=== PATIENT | female | born 1980 | race Caucasian/White ===

== ENCOUNTER → 2017-11-08 13:29 | Outpatient (REF) | payer MEDICAID, SELFPAY ==
[2017-11-08 21:31] LABS: Amphetamine/Metha Screen,Urine Negative ng/mL (<1000); Barbiturates Screen,Urine Negative ng/mL (<200); Benzodiazepines Screen,Urine Negative ng/mL (200); Cannabinoid Screen,Urine Negative ng/mL (<50); Cocaine Screen,Urine Negative ng/g (<300); Methadone Screen,Urine Negative ng/mL (<300); Opiate Screen,Urine Negative ng/mL (<300); Phencyclidine Screen,Urine Negative ng/mL (<25)
== END ==
LOC: LAB 13:29
PROVIDERS: Visit Provider Nurse Practitioner Family
DX: Z79.899 Other long term (current) drug therapy (principal)
CPT/HCPCS: 80305

== ENCOUNTER 2017-12-11 07:37 | Inpatient (IN) | payer MEDICAID, SELFPAY ==
[2017-12-11] VITALS (9 sets, daily range): BP systolic 95–115; BP diastolic 48–69; PULSE 71–91; RESP 12–20; TEMP 36.6–36.9; O2SAT 94–99; BMI 23.0
--- NOTE | 2017-12-11 07:47 | XR_ITS ---
XR chest 2V Ordering Physician: Pilar George MD Patient Age: 37 years: Female HISTORY: ITS.REASON: Chest pain Chest pain short of breath TECHNIQUE: PA and lateral chest COMPARISON :PA and lateral chest 10/29/2015. FINDINGS No prominent findings. No pneumothorax. No pleural effusion . No definitive focal pneumonia or consolidation. . There is slight rotation on this chest film which accentuates markings at the left perihilar region. Mild prominence markings left perihilar region most likely reflect stable features with no convincing infiltrate or pneumonia. No significant change compared to prior studies when mild rotation, positioning and technique are considered.. No convincing perihilar infiltrate Chest wall and ribs and T-spine satisfactory. IMPRESSION No pneumothorax.. Nothing definitely acute. Upper normal markings at the left perihilar region.-Most likely left perihilar markings are accentuated by leftward rotation on this chest film and most likely stable since previous 2016 CXR..
[2017-12-11 08:06] LABS: Basophils % 0.1 % (0.1-2.0); Eosinophils # 0.2 K/mm3 (0.0-0.4); Eosinophils % 1.6 % (0.1-12.0); Hematocrit 45.5 % (37.0-47.0); Hemoglobin 16.4 g/dL (12.2-16.2); Lymphocytes # 1.2 K/mm3 (0.7-4.5); Lymphocytes % 9.8 K/mm3 (10-50); Mean Corpuscular HGB Conc 36.1 g/dL (31.8-35.4); Mean Corpuscular Volume 91.5 fl (81-99); Mean Platelet Volume 6.9 fl (7.4-10.4); Monocytes # 0.4 K/mm3 (0.1-1.0); Monocytes % 3.3 % (1.7-9.3); Neutrophils # 10.7 K/mm3 (1.8-7.8); Neutrophils % 85.4 % (37.0-80.0); Platelet Count 265 K/mm3 (142-424); Red Blood Count 4.97 M/mm3 (4.20-5.40); Red Cell Distribution Width 12.5 % (11.5-17.5); White Blood Count 12.5 K/mm3 (4.8-10.8)
[2017-12-11 08:07] LABS: MANUAL DIFFERENTIAL MANUAL DIFFERENTIAL (MANUAL DIFF)
[2017-12-11 08:21] LABS: Chloride 103 mmol/L (98-107); Creatine Kinase 80 U/L (26-192); Potassium 3.5 mmoL/L (3.5-5.1); Sodium 137 mmol/L (136-145)
[2017-12-11 08:22] LABS: Alanine Aminotransferase 53 U/L (12-78); Albumin Level 3.6 gm/dL (3.4-5.0); Albumin/Globulin Ratio 0.9 (1.1-1.8); Alkaline Phosphatase 91 U/L (46-116); Aspartate Amino Transferase 47 U/L (15-37); Bilirubin,Total 0.5 mg/dL (0.2-1.0); Blood Urea Nitrogen 6 mg/dL (7-18); Calcium 8.3 mg/dL (8.5-10.1); Carbon Dioxide 27 mmol/L (21.0-32.0); Creatinine Clearance Estimated 105 mL/min (0-300); Creatinine,Serum 0.65 mg/dL (0.55-1.02); Estimated Glomerular Filt Rate 103 ml/min (>60); GFR (African American) 125 ML/MIN (>60); Globulin 3.9 gm/dl (1.3-3.2); Total Protein,Serum 7.5 gm/dL (6.4-8.2)
[2017-12-11 08:25] LABS: Lymphocytes % 14 % (10-50); Monocytes % 1 % (2-9); Neutrophils % 83 % (42-76); Platelet Estimate Normal; RBC Morphology Normal; Total Cells Counted 100
[2017-12-11 08:28] LABS: Glucose 111 mg/dL (74-106)
--- NOTE | 2017-12-11 08:30 | HMH.EDSOB ---
ED Disposition Clinical Impression: Acute coronary syndrome, Pneumonia, Tobacco abuse disorder, Asthma, Hypertension Disposition: Still a Patient Condition on Discharge: Fair Referrals: Martin Meeks APRN [Primary Care Provider] - - Critical Care Critical Care Time: No Attestation: On 12/11/17, the high probability of a clinically significant, sudden or life threatening deterioration of the following system(s) required my full and direct attention, intervention and personal management. The time I documented below is in addition to time spent performing reported procedures but includes the following listed in this critical care notation. Medical Decision Making Vital Signs: 12/11/17 07:38 Temperature 98.4 F Temperature Source Oral Pulse Rate [Right Radial] 91 H Respiratory Rate 20 Blood Pressure [Left Arm] 95/48 Blood Pressure Mean [Left Arm] 63 Blood Pressure Source [Left Arm] Automatic Cuff Blood Pressure Position [Left Arm] Right Lateral 02 Sat by Pulse Oximetry 94 L Oxygen Delivery Method Nasal Cannula - Lab Data Lab results reviewed: Yes: I reviewed the patient's lab results. Lab Results 12/11/17 07:55: WBC 12.5 H, RBC 4.97, Hgb 16.4 H, Hct 45.5, MCV 91.5, MCH 33.0 H, MCHC 36.1 H, RDW 12.5, Plt Count 265, MPV 6.9 L, Neut % (Auto) 85.4 H, Lymph % (Auto) 9.8 L, [place] % (Auto) 3.3, Eos % (Auto) 1.6, Baso % (Auto) 0.1, Neut # (Auto) 10.7 H, Lymph # (Auto) 1.2, [place] # (Auto) 0.4, Eos # (Auto) 0.2, Baso # (Auto) 0.0, Total Counted 100, Neutrophils % (Manual) 83 H, Band Neutrophils % 1.0, Lymphocytes % (Manual) 14, Atypical Lymphs % 1.0, Monocytes % (Manual) 1 L, Platelet Estimate Normal, RBC Morphology Normal 12/11/17 07:55: Sodium 137, Potassium 3.5, Chloride 103, Carbon Dioxide 27, Anion Gap 7.0, BUN 6 L, Creatinine 0.65, Estimated Creat Clear 105, Estimated GFR 103, Est GFR ( Amer) 125, Glucose 111 H, Calcium 8.3 L, Total Bilirubin 0.5, AST 47 H, ALT 53, Alkaline Phosphatase 91, Total Creatine Kinase 80, CK-MB (CK-2) 2.7, CK-MB (CK-2) Rel Index 3.4, Troponin I 0.74 H, Total Protein 7.5, Albumin 3.6, Globulin 3.9 H, Albumin/Globulin Ratio 0.9 L 12/11/17 07:55: D-Dimer < 100 12/11/17 07:55: B-Natriuretic Peptide 102 H 12/11/17 08:40: Specimen Source Right brachial, O2 % 28, ABG pH 7.43, ABG pCO2 34.7 L, ABG pO2 46.4 L, ABG HCO3 22.5, ABG Total CO2 23.5, ABG O2 Saturation 88 L, ABG Base Excess -1.9, Trip Test Not applicable Result diagrams: 12/11/17 07:55 12/11/17 07:55 Orders (Tests/Meds): ED MEDICATIONS Generic Name Dose Route Start Last Admin Trade Name Freq PRN Reason Stop Dose Admin Sodium Chloride 1,000 mls @ 999 mls/hr 12/11/17 08:45 Sod Chlor 0.9% 1000ml Bag IV 12/11/17 09:45 .Q1H1M DEVON Ceftriaxone Sodium 1 gm/ 50 mls @ 100 mls/hr 12/11/17 08:45 Sodium Chloride IV 12/25/17 08:44 Q24H DEVON Protocol Discontinued Medications Generic Name Dose Route Start Last Admin Trade Name Freq PRN Reason Stop Dose Admin Albuterol Sulfate 2.5 mg 12/11/17 08:41 Albuterol 0.083% 2.5mg/3ml Neb IH 12/11/17 08:42 ONCE ONE Aspirin 325 mg 12/11/17 07:46 12/11/17 07:51 Aspirin 325mg Tablet PO 12/11/17 07:47 325 mg ONCE ONE Administration Enoxaparin Sodium 60 mg 12/11/17 08:41 Lovenox 60mg/0.6ml Syringe SQ 12/11/17 08:42 ONCE ONE Famotidine 20 mg 12/11/17 08:41 Pepcid 20mg/2ml Vial IV 12/11/17 08:42 ONCE ONE ORDERS Category Date Time Status XR chest 2V Stat Exams 12/11/17 07:47 Taken Lactic Acid Stat Lab 12/11/17 09:00 Received Blood Culture Stat Micro 12/11/17 08:41 Ordered Sputum Culture & Gram Stain Stat Micro 12/11/17 08:41 Ordered ABG [Arterial Blood Gas] Stat RT 12/11/17 08:07 Ordered 12-lead EKG Request [ECG Request by /Susanne] Stat Y 12/11/17 07:49 Ordered - Radiology Data #1 Image(s): Chest Image Reviewed: Yes I reviewed the patient's radiology image Preliminary Findings:
[2017-12-11 08:34] LABS: CKMB Relative Index 3.4 U/L (0-4.0); Creatine Kinase MB 2.7 mg/ml (0.0-3.6)
--- NOTE | 2017-12-11 08:34 | ED_ITS ---
ED Disposition Clinical Impression: Acute coronary syndrome, Pneumonia, Tobacco abuse disorder, Asthma, Hypertension Disposition: Still a Patient Condition on Discharge: Fair Referrals: Martin Meeks APRN [Primary Care Provider] - - Critical Care Critical Care Time: No Attestation: On 12/11/17, the high probability of a clinically significant, sudden or life threatening deterioration of the following system(s) required my full and direct attention, intervention and personal management. The time I documented below is in addition to time spent performing reported procedures but includes the following listed in this critical care notation. Medical Decision Making Vital Signs: 12/11/17 07:38 Temperature 98.4 F Temperature Source Oral Pulse Rate [Right Radial] 91 H Respiratory Rate 20 Blood Pressure [Left Arm] 95/48 Blood Pressure Mean [Left Arm] 63 Blood Pressure Source [Left Arm] Automatic Cuff Blood Pressure Position [Left Arm] Right Lateral 02 Sat by Pulse Oximetry 94 L Oxygen Delivery Method Nasal Cannula - Lab Data Lab results reviewed: Yes: I reviewed the patient's lab results. Lab Results 12/11/17 07:55: WBC 12.5 H, RBC 4.97, Hgb 16.4 H, Hct 45.5, MCV 91.5, MCH 33.0 H , MCHC 36.1 H, RDW 12.5, Plt Count 265, MPV 6.9 L, Neut % (Auto) 85.4 H, Lymph % (Auto) 9.8 L, [place] % (Auto) 3.3, Eos % (Auto) 1.6, Baso % (Auto) 0.1, Neut # ( Auto) 10.7 H, Lymph # (Auto) 1.2, [place] # (Auto) 0.4, Eos # (Auto) 0.2, Baso # ( Auto) 0.0, Total Counted 100, Neutrophils % (Manual) 83 H, Band Neutrophils % 1.0, Lymphocytes % (Manual) 14, Atypical Lymphs % 1.0, Monocytes % (Manual) 1 L , Platelet Estimate Normal, RBC Morphology Normal 12/11/17 07:55: Sodium 137, Potassium 3.5, Chloride 103, Carbon Dioxide 27, Anion Gap 7.0, BUN 6 L, Creatinine 0.65, Estimated Creat Clear 105, Estimated GFR 103, Est GFR ( Amer) 125, Glucose 111 H, Calcium 8.3 L, Total Bilirubin 0.5, AST 47 H, ALT 53, Alkaline Phosphatase 91, Total Creatine Kinase 80, CK-MB (CK-2) 2.7, CK-MB (CK-2) Rel Index 3.4, Troponin I 0.74 H, Total Protein 7.5, Albumin 3.6, Globulin 3.9 H, Albumin/Globulin Ratio 0.9 L 12/11/17 07:55: D-Dimer < 100 12/11/17 07:55: B-Natriuretic Peptide 102 H 12/11/17 08:40: Specimen Source Right brachial, O2 % 28, ABG pH 7.43, ABG pCO2 34.7 L, ABG pO2 46.4 L, ABG HCO3 22.5, ABG Total CO2 23.5, ABG O2 Saturation 88 L, ABG Base Excess -1.9, Trip Test Not applicable Result diagrams: 12/11/17 07:55 12/11/17 07:55 Orders (Tests/Meds): ED MEDICATIONS Generic Name Dose Route Start Last Admin Trade Name Freq PRN Reason Stop Dose Admin Sodium Chloride 1,000 mls @ 999 mls/hr 12/11/17 08:45 Sod Chlor 0.9% 1000ml Bag IV 12/11/17 09:45 .Q1H1M DEVON Ceftriaxone Sodium 1 gm/ 50 mls @ 100 mls/hr 12/11/17 08:45 Sodium Chloride IV 12/25/17 08:44 Q24H DEVON Protocol Discontinued Medications Generic Name Dose Route Start Last Admin Trade Name Freq PRN Reason Stop Dose Admin Albuterol Sulfate 2.5 mg 12/11/17 08:41 Albuterol 0.083% 2.5mg/3ml Neb IH 12/11/17 08:42 ONCE ONE Aspirin 325 mg 12/11/17 07:46 12/11/17 07:51 Aspirin 325mg Tablet PO 12/11/17 07:47 325 mg ONCE ONE Administration Enoxaparin Sodium 60 mg 12/11/17 08:41 Lovenox 60mg/0.6ml Syringe SQ 12/11/17 08:42 ONCE ON
[2017-12-11 08:35] LABS: Troponin I 0.74 ng/ml (0.00-0.06)
[2017-12-11 08:37] LABS: D-Dimer < 100 (0-400)
[2017-12-11 08:47] LABS: ABG Base Excess -1.9 mmol/L (-2.4-2.3); ABG HCO3 22.5 mmhg (22.0-26.0); ABG Oxygen Saturation 88 % (90-100); ABG PCO2 34.7 mmhg (35.0-45.0); ABG PH 7.43 mmol/L (7.35-7.45); ABG TCO2 23.5 mmhg (23-27)
[2017-12-11 08:50] LABS: Oxygen 28 %; Source RIGHT BRACHIAL
[2017-12-11 08:51] LABS: ABG PO2 46.4 mmhg (80-100)
[2017-12-11 09:29] LABS: Lactic Acid 0.9 mmol/L (0.4-2.0)
--- NOTE | 2017-12-11 12:50 | P.CONPHA_ITS ---
[facility] Pharm[facility] VTE Monitoring - Patient Demographics Admission date: 12/11/17 Report Date: 12/11/17 Time: 12:50 Allergies/Adverse Reactions: Patient Allergies No Known Allergies Allergy (Verified 12/06/17 12:00) Height: 1.55 m Weight: 48.081 kg Patient Problems: Current Active Problems Acute coronary syndrome (Acute) Pneumonia (Acute) Tobacco abuse disorder (Acute) Asthma (Acute) Hypertension (Acute) - VTE Risk Labs: VTE Related Lab Results Hgb 16.4 g/dL (12.2-16.2) H 12/11/17 07:55 Hct 45.5 % (37.0-47.0) 12/11/17 07:55 Plt Count 265 K/mm3 (142-424) 12/11/17 07:55 BUN 6 mg/dL (7-18) L 12/11/17 07:55 Creatinine 0.65 mg/dL (0.55-1.02) 12/11/17 07:55 Estimated Creat Clear 105 mL/min (0-300) 12/11/17 07:55 Was VTE Risk Assessment Performed: Yes VTE Score: 1 VTE Risk Level: Low Risk - Prophylaxis VTE Prophylaxis Ordered?: Yes Types of VTE Prophylaxis: Pharmacological Pharmacologic Type: Enoxaparin
--- NOTE | 2017-12-11 23:12 | PC.NURSE ---
pt c/o shortness of breath O2 sats 94 on 2 L, pt placed on 2 L NC, upon reassessment pt states SOA has decreased.
[2017-12-12] VITALS (24 sets, daily range): BP systolic 97–151; BP diastolic 45–99; PULSE 70–100; RESP 14–18; TEMP 36.6–37.4; O2SAT 93–100
--- NOTE | 2017-12-12 | IR_ITS ---
CARDIAC CATHETERIZATION DATE OF CATHETERIZATION:12/12/2017 10:20 AM PROCEDURES: 1. Left heart catheterization 2. Left ventriculogram 3. Selective coronary angiogram INDICATION FOR TEST: 1. Acute non-ST elevation myocardial infarction troponin 0.74 2. Risk factors for coronary disease 3. Highly abnormal EKG Informed consent was obtained prior to the procedure. COMPLICATIONS: None ESTIMATED BLOOD LOSS: Less than 10 ml. TECHNIQUE: One percent lidocaine used to anesthetize the right anterior aspect of the wrist. The right radial artery was accessed via the Seldinger technique. A 6 Icelandic sheath was placed in the right radial artery. 2.5 mg of verapamil, 800 mcg of nitroglycerin and 5000 U Heparin were given through the arterial sheath. The trap catheter was also used to perform left heart catheterization left ventriculogram and selective coronary angiogram. At the end of the procedure the patient was transferred to the post-op holding area in stable condition for arterial sheath removal. ANGIOGRAPHIC RESULTS: 1. The left main artery normal 2. The left anterior descending artery has very proximal eccentric 10% stenosis 3. The circumflex artery is codominant and normal 4. The right coronary artery is codominant normal 5. The GONZÁLES ventriculogram reveals normal 65% 6. The left ventricular end-diastolic pressure 10 mmHg IMPRESSION: 1. Mild nonflow limiting coronary artery disease 2. Normal ejection fraction 3. Normal left ventricular end-diastolic pressure PLAN: 1. Patient is having severe anxiety. Recommend anxiolytics 2. Beta blockers and or diltiazem 3. Aggressive risk factor modification 4. Tobacco cessation 5. LDL less than 55 6. I would recommend patient be evaluated for pulmonary embolism. Her EKG does suggest right ventricular strain. This could also explain the elevated troponin
--- NOTE | 2017-12-12 03:42 | PC.NURSE ---
no changes noted from previous assessment, at beginning of shift pt appeared very anxious and was crying, PRN medication given for anxiety and pt has slept since, pt c/o chest discomfort and SOA once this shift, PRN medication given per DEC and 2L NC placed, pt currently on room air and O2 sats remain wnl, scattered wheezing noted to auscultation, bowel sounds are active, no acute distress noted at this time, call light in reach, will continue to monitor.
--- NOTE | 2017-12-12 06:17 | PC.NURSE ---
report given to Emely Macias RN
[2017-12-12 07:18] LABS: Eosinophils % 0.6 % (0.1-12.0); Hematocrit 41.7 % (37.0-47.0); Mean Corpuscular HGB Conc 34.2 g/dL (31.8-35.4); Mean Corpuscular Hemoglobin 31.2 pg (27.0-31.2); Mean Corpuscular Volume 91.4 fl (81-99); Mean Platelet Volume 7.3 fl (7.4-10.4); Monocytes # 0.3 K/mm3 (0.1-1.0); Monocytes % 4.6 % (1.7-9.3); Neutrophils # 3.4 K/mm3 (1.8-7.8); Neutrophils % 59.8 % (37.0-80.0); Platelet Count 210 K/mm3 (142-424); Red Blood Count 4.56 M/mm3 (4.20-5.40); Red Cell Distribution Width 12.5 % (11.5-17.5); White Blood Count 5.7 K/mm3 (4.8-10.8)
[2017-12-12 07:30] LABS: Anion Gap 12.5 mEq/L (5-15); Blood Urea Nitrogen 6 mg/dL (7-18); Carbon Dioxide 24 mmol/L (21.0-32.0); Chloride 108 mmol/L (98-107); Cholesterol 181 mg/dL (140-200); Creatinine Clearance Estimated 100 mL/min (0-300); Creatinine,Serum 0.59 mg/dL (0.55-1.02); Estimated Glomerular Filt Rate 115 ml/min (>60); GFR (African American) 140 ML/MIN (>60); Glucose 88 mg/dL (74-106); HDL Cholesterol 30 mg/dL (29-89); LDL Cholesterol 116 mg/dL (0-130); Potassium 3.5 mmoL/L (3.5-5.1); Sodium 141 mmol/L (136-145); Triglycerides 175 mg/dL (30-200); VLDL Cholesterol 35 mg/dL (0-40)
[2017-12-12 07:55] LABS: Hemoglobin 14.2 g/dL (12.2-16.2)
--- NOTE | 2017-12-12 07:57 | HMH.CNCARD ---
History of Present Illness Consult date: 12/12/17 Requesting physician: Frank Donovan Consult reason: chest pain Chief complaint: chest pain, SOA Additional Medical History:: 1. Hypertension, treated for about 3 years 2. Tobacco use, 1-1.5 packs per day, several years 3. Anxiety 4. Tremor 5. Strong family history of coronary artery disease in both her brother and father in their 30s. 6. History of seizure activity postanesthesia, 09/2017, after deviated septum surgery. History of present illness: 37-year-old white female with history of tobacco use, hypertension and strong family history of coronary disease was awakened about 4:00 yesterday morning with severe shortness of breath, right-sided chest pain with radiation into the right shoulder and jaw. She did have some accompanying chest discomfort with deep breathing or coughing. Patient called EMS for evaluation and was subsequently transported to the hospital for further treatment. Symptoms did seem to improve with oxygen therapy in route. She was diagnosed with pneumonia and started on antibiotics. Lab work returned with an elevated troponin at 0.74. EKG showed sinus rhythm without acute ST segment changes. Patient denies any recurrent chest pain since admission and cardiology consulted for evaluation. The patient relates that her brother from a heart attack in his early 30s. Her father had heart attack in his 30s as well. [facility] History Medical History: Reports:: Anxiety, Depression, Hypertension Denies:: Diabetes Mellitus Type 1, Diabetes Mellitus Type 2 Laterality Cases: Bilateral: Other Other Surgeries: Yes: , Hernia Repair, Hysterectomy-Total, Tubal Ligation Amputation: No Fractures: Yes - *Social History Educational Level: Completed High School Smoking Status: Current every day smoker Tobacco Type: cigarettes # Packs/Day (cigarettes): 1 Alcohol Intake: never Alcohol Intake Frequency:: holidays/special occasions only Substance Use Type: denies use Occupational Status: employed - Psychiatric History Expresses thoughts of harming self/others: None Suicide Plan Description: No Plan Pschychiatric History:: Reports:: Anxiety, Depression *Family Hx:: Hypertension, Cancer Meds Home Medications Medication Instructions Recorded Confirmed Type Amlodipine Besylate [Amlodipine 10 mg PO DAILY 12/11/17 12/11/17 History 10mg Tab] Buprenorphine HCl/Naloxone HCl 2.5 film SL DAILY 12/11/17 12/11/17 History [Suboxone 8 mg-2 mg Sl Film] Gabapentin [Neurontin 800mg Tab] 800 mg PO TID 12/11/17 12/11/17 History Nicotine [Nicotine Patch] 1 patch TRANSDERMA Q24H 12/11/17 12/11/17 History Propranolol HCl 10 mg PO TID 12/11/17 12/11/17 History Quetiapine Fumarate 50 mg PO TID 12/11/17 12/11/17 History Sertraline HCl [Zoloft] 100 mg PO DAILY 12/11/17 12/11/17 History hydrOXYzine pamoate [Vistaril] 25 mg PO HS 12/11/17 12/11/17 History Allergies Allergy/AdvReac Type Severity Reaction Status Date / Time No Known Allergies Allergy Verified 12/06/17 12:00 Review of Systems - *Cardiovascular Reports chest pain, Reports shortness of breath, Reports shortness of breath with activity - *Respiratory Reports chest congestion, Reports cough, Reports shortness of breath, Reports shortness of breath with activity - *Gastrointestinal Denies nausea, Denies vomiting - *Musculoskeletal Reports back pain, Denies joint pain Exam Vital signs and Labs for Last 24 Hours: Temp Pulse Resp BP Pulse Ox 98.2 F 75 14 128/86 96 12/12/17 04:07 12/12/17 04:07 12/12/17 04:07 12/12/17 04:07 12/12/17 04:07 Laboratory Results - last 24 hr 12/12/17 06:49: WBC 5.7 D, RBC 4.56, Hgb 14.2 D, Hct 41.7, MCV 91.4, MCH 31.2, MCHC 34.2, RDW 12.5, Plt Count 210, MPV 7.3 L, Neut % (Auto) 59.8, Lymph % (Auto) 35.0, Cotton % (Auto) 4.6, Eos % (Auto) 0.6, Baso % (Auto) 0.0 L, Neut # (Auto) 3.4, Lymph # (Auto) 2.0, Cotton # (Auto) 0.3, Eos # (Auto) 0.0, Baso # (
--- NOTE | 2017-12-12 08:01 | P.CONS_ITS ---
History of Present Illness Consult date: 12/12/17 Requesting physician: Frank Donovan Consult reason: chest pain Chief complaint: chest pain, SOA Additional Medical History:: 1. Hypertension, treated for about 3 years 2. Tobacco use, 1-1.5 packs per day, several years 3. Anxiety 4. Tremor 5. Strong family history of coronary artery disease in both her brother and father in their 30s. 6. History of seizure activity postanesthesia, 09/2017, after deviated septum surgery. History of present illness: 37-year-old white female with history of tobacco use, hypertension and strong family history of coronary disease was awakened about 4:00 yesterday morning with severe shortness of breath, right-sided chest pain with radiation into the right shoulder and jaw. She did have some accompanying chest discomfort with deep breathing or coughing. Patient called EMS for evaluation and was subsequently transported to the hospital for further treatment. Symptoms did seem to improve with oxygen therapy in route. She was diagnosed with pneumonia and started on antibiotics. Lab work returned with an elevated troponin at 0.74. EKG showed sinus rhythm without acute ST segment changes. Patient denies any recurrent chest pain since admission and cardiology consulted for evaluation. The patient relates that her brother from a heart attack in his early 30s. Her father had heart attack in his 30s as well. [facility] History Medical History: Reports:: Anxiety, Depression, Hypertension Denies:: Diabetes Mellitus Type 1, Diabetes Mellitus Type 2 Laterality Cases: Bilateral: Other Other Surgeries: Yes: , Hernia Repair, Hysterectomy-Total, Tubal Ligation Amputation: No Fractures: Yes - *Social History Educational Level: Completed High School Smoking Status: Current every day smoker Tobacco Type: cigarettes # Packs/Day (cigarettes): 1 Alcohol Intake: never Alcohol Intake Frequency:: holidays/special occasions only Substance Use Type: denies use Occupational Status: employed - Psychiatric History Expresses thoughts of harming self/others: None Suicide Plan Description: No Plan Pschychiatric History:: Reports:: Anxiety, Depression *Family Hx:: Hypertension, Cancer Meds Home Medications Medication Instructions Recorded Confirmed Type Amlodipine Besylate [Amlodipine 10 mg PO DAILY 12/11/17 12/11/17 History 10mg Tab] Buprenorphine HCl/Naloxone HCl 2.5 film SL DAILY 12/11/17 12/11/17 History [Suboxone 8 mg-2 mg Sl Film] Gabapentin [Neurontin 800mg Tab] 800 mg PO TID 12/11/17 12/11/17 History Nicotine [Nicotine Patch] 1 patch TRANSDERMA Q24H 12/11/17 12/11/17 History Propranolol HCl 10 mg PO TID 12/11/17 12/11/17 History Quetiapine Fumarate 50 mg PO TID 12/11/17 12/11/17 History Sertraline HCl [Zoloft] 100 mg PO DAILY 12/11/17 12/11/17 History hydrOXYzine pamoate [Vistaril] 25 mg PO HS 12/11/17 12/11/17 History Allergies Allergy/AdvReac Type Severity Reaction Status Date / Time No Known Allergies Allergy Verified 12/06/17 12:00 Review of Systems - *Cardiovascular Reports chest pain, Reports shortness of breath, Reports shortness of breath with activity - *Respiratory Reports chest congestion, Reports cough, Reports shortness of breath, Reports shortness of breath with activity - *Gastrointestinal Denies nausea, Denies vomiting - *Musculoskeletal Reports back pain, Denies joint pain Exam Vital signs and Labs for Last 24 Hours:
--- NOTE | 2017-12-12 08:07 | CA_ITS ---
PROCEDURE: 2-D M-mode and color Doppler study INDICATIONS FOR THE TEST: Chest pain COPD Heart Murmur Tobacco SmokingX Palpitations Fatigue Syncope Edema HypertensionXDiabetes Mellitus Rheumatic Fever SOBXDOE Obesity Hyperlipidemia Family History HDX Additional History NSTEMI PATIENT INFORMATION HEIGHT: 61 WEIGHT:106 GENDER: Female B/P:128/86 2-D/M-MODE INTERPRETATION: 2-D MEASUREMENTS OBSERVED VALUES IN CMS Right Ventricular Dimension (RVDd) 1.8 Interventricular Septum (Thickness)(IVsd) .8 Left Ventricular Internal Dimensions(LVIDd) 3.6 Left Ventricular Posterior Wall (Thickness)(LVPWd) .9 Aortic Root 2.4 Aortic Cusp Separation 1.8 Left Atrial Dimensions (LAD) 1.8 2D 1. Left atrium is mildly enlarged, left ventricle is normal size, there is no concentric left ventricular hypertrophy, there is reduced left ventricular systolic function, visually estimated ejection fraction approximately 40%, there is marked hypokinesis involving the mid to distal septum, anteroapical and apical wall. 2. The right atrium and right ventricle are normal size and contractility. 3. The aortic valve is minimally thickened and fibrosed. 4. The mitral and tricuspid valve are structurally normal. 5. The pulmonic valve is poorly visualized. 6. No significant pericardial effusion noted. DOPPLER INTERROGATION: Doppler interrogation of the aortic, mitral and tricuspid valvular presence of mild mitral and tricuspid regurgitation, tricuspid and jet velocity insufficient for calculation of the right ventricular systolic pressure, diastolic parameters are inconclusive. CONCLUSION: 1. Normal left ventricular size, visually estimated ejection fraction 40% with segmental wall motion abnormality described above, diastolic parameters are inconclusive. 2. Mild mitral and tricuspid regurgitation 3. No significant pericardial effusion noted.
--- NOTE | 2017-12-12 10:10 | PC.NURSE ---
Patient off floor for heart cath. 1000
--- NOTE | 2017-12-12 13:24 | CT_ITS ---
CT angio chest Ordering Physician: Frank Donovan MD Patient Age: 37 years: Female HISTORY: ITS.REASON: SOAshort of breath. Heart catheter this morning TECHNIQUE: Helical CT scanning performed following 30 cc Isovue 370 and subsequent 40 m L of normal saline bolus. COMPARISON :Chest film 12/11/2017 yesterday FINDINGS No evidence of pulmonary blood Excellent Opacification of colon artery and vascular structures. With only mild motion artifact.. Normal. Pulmonary arteriesAnd branches. No pleural effusion Aorta appears normal in caliber. Great vessels normal. Rather diffuse patchy infiltrates throughout the lungs bilaterally. Most likely reflecting pneumonitis/pneumonia These patchy infiltrates are central and peribronchial, but not perihilar in distribution.. These patchy infiltrates are most evident throughout the upper lobes bilaterally. They have more of a groundglass opacity character throughout the right lower lobe and minimal infiltrate at the left lower lobe. Mediastinum but no mediastinal nor hilar adenopathy. Small calcified left hilar nodes. The heart appears normal in size no pericardial effusion. Upper abdomen. Spleen appears mildly enlarged. Liver. Generous size. No focal lesions IMPRESSION . 1.. No evidence of pulmonary embolism. Good quality study. 2. Diffuse subtle patchy Bilateral infiltrates, which have progressed slightly since yesterday chest film. Findings most compatible with Bronchopneumonia, w/ diffuse patchy infiltrates throughout most evident towards upper lobes bilaterally. . No pleural effusion. No area of dense focal consolidation 3. Splenomegaly incidentally noted at upper abdomen
--- NOTE | 2017-12-12 18:09 | HMH.HPDC ---
General - General Admission date: 12/11/17 Discharge date: 12/12/17 *Admission Date: 12/11/17 *Chief complaint: sob *History of present illness: this wf presented to the [facility] ed with chest pain and sob - she days ago she developed headache sore throat runny nose fever 103, on the following second and third day she developed productive cough of yellow sputum occasionally gagging until she vomited, she developed diarrhea also. She attempted to contact her primary care physician Dr. Donovan and she was informed to use [id number] medications and keep her follow-up appointment. She did and she felt better yesterday. This morning at 4 AM she was awakened by right shoulder pain and low back pain associated with shortness of air wheezing and cough. Per EMS report the nursing staff, her oxygen saturation is 93% on room air. She was given breathing treatments and oxygen with marked improvement of her symptoms. She can breathe better now. [facility] History I have reviewed the patient's past medical history: Yes Medical History: Reports:: Anxiety, Depression, Hypertension Denies:: Diabetes Mellitus Type 1, Diabetes Mellitus Type 2 Laterality Cases: Bilateral: Other Other Surgeries: Yes: , Hernia Repair, Hysterectomy-Total, Tubal Ligation Amputation: No Fractures: Yes - *Social History Educational Level: Completed High School Smoking Status: Current every day smoker Tobacco Type: cigarettes # Packs/Day (cigarettes): 1 Alcohol Intake: never Alcohol Intake Frequency:: holidays/special occasions only Substance Use Type: denies use Occupational Status: employed - Psychiatric History Expresses thoughts of harming self/others: None Suicide Plan Description: No Plan Pschychiatric History:: Reports:: Anxiety, Depression *Family Hx:: Hypertension, Cancer Review of Systems - Review of Systems Review of systems:: pertinent systems reviewed and negative unless documented below - Constitutional Reports malaise, Denies fever(s) - Eyes Denies change in vision - ENT Denies sore throat - *Cardiovascular Reports chest pain, Reports shortness of breath, Denies chest pain at rest - *Respiratory Reports cough, Denies coughing up blood - *Gastrointestinal Reports nausea, Denies abdominal pain - *Musculoskeletal Denies joint pain - Integumentary/Breasts Denies rash - *Neurologic Denies confusion, Denies dizziness - Psychiatric Reports anxiety Exam Vital signs and Labs for Last 24 Hours: Temp Pulse Resp BP Pulse Ox 99.2 F 70 16 123/92 97 12/12/17 13:45 12/12/17 16:00 12/12/17 13:45 12/12/17 13:45 12/12/17 13:45 Laboratory Results - last 24 hr 12/12/17 06:49: WBC 5.7 D, RBC 4.56, Hgb 14.2 D, Hct 41.7, MCV 91.4, MCH 31.2, MCHC 34.2, RDW 12.5, Plt Count 210, MPV 7.3 L, Neut % (Auto) 59.8, Lymph % (Auto) 35.0, [place] % (Auto) 4.6, Eos % (Auto) 0.6, Baso % (Auto) 0.0 L, Neut # (Auto) 3.4, Lymph # (Auto) 2.0, [place] # (Auto) 0.3, Eos # (Auto) 0.0, Baso # (Auto) 0.0 12/12/17 06:49: Sodium 141, Potassium 3.5, Chloride 108 H, Carbon Dioxide 24, Anion Gap 12.5, BUN 6 L, Creatinine 0.59, Estimated Creat Clear 100, Estimated GFR 115, Est GFR ( Amer) 140, Glucose 88 D, Triglycerides 175, Cholesterol 181, LDL Cholesterol 116, VLDL Cholesterol 35, HDL Cholesterol 30, Cholesterol/HDL Ratio 6.0 H I & O for Last 24 hours: Intake & Output 12/10/17 12/11/17 12/12/17 12/13/17 10:59 11:59 11:59 11:59 Intake Total 1671 / 1671 Balance 1671 / 1671 Weight 106 lb 0.007 oz Microbiology Reports for the Last 24 Hours: Microbiology 12/11/17 10:15 Blood Blood Culture - Preliminary NO GROWTH AFTER 24 HOURS - Constitutional no acute distress, thin - *Routine HEENT Exam Head: Present: normocephalic Eye: Present: EOMI, PERRL. Absent: conjunctival icterus ENT: Present: mucous membranes dry - *Routine Neck Exam Present: supple. Absent: JVD - *Routine Resp
--- NOTE | 2017-12-12 19:06 | PC.NURSE ---
PT HAS BEEN DISCHARGED. EDUCATED ON CATH SITE CARE. DRESSING WAS PLACED WITH 2X2 AND TELFA NO BLEEDING NOTED AND NO BRUISING.
== END 2017-12-12 19:20 | disposition home or self-care (01) | DRG 282 ==
LOC: ER 08:34 → 2ND 09:15
PROVIDERS: Internal Medicine; Admitting Provider Emergency Medicine; Emergency Provider Emergency Medicine; PCP Emergency Medicine; Visit Provider Emergency Medicine
DX: I21.4 Non-ST elevation (NSTEMI) myocardial infarction; I10 Essential (primary) hypertension; Z72.0 Tobacco use; F31.9 Bipolar disorder, unspecified; Z82.49 Family history of ischemic heart disease and other diseases of the circulatory system
CPT/HCPCS: 36415; 71046; 71275; 80048; 80053; 80061; 82550; 82553; 82803; 83605; 83880; 84484; 85007; 85025; 85378; 87040; 93005; 93306; 93458; 94640; 94760; 94761; 99152; 99284; C1725; C1769; J1644; J2270; Q9967

== ENCOUNTER → 2018-01-06 11:39 | Outpatient (CLI) | payer MEDICAID, SELFPAY | PROVIDERS: Visit Provider Nurse Practitioner Family | DX: Z79.899 Other long term (current) drug therapy (principal) ==

== ENCOUNTER → 2018-01-27 12:40 | Outpatient (CLI) | payer MEDICAID, SELFPAY ==
[2018-01-27 18:38] LABS: Eosinophils % 0.2 % (0.1-12.0); Hematocrit 45.6 % (37.0-47.0); Hemoglobin 16.1 g/dL (12.2-16.2); Lymphocytes # 1.8 K/mm3 (0.7-4.5); Lymphocytes % 31.6 K/mm3 (10-50); Mean Corpuscular HGB Conc 35.3 g/dL (31.8-35.4); Mean Corpuscular Volume 90.7 fl (81-99); Mean Platelet Volume 7.8 fl (7.4-10.4); Monocytes # 0.4 K/mm3 (0.1-1.0); Monocytes % 6.2 % (1.7-9.3); Neutrophils # 3.6 K/mm3 (1.8-7.8); Neutrophils % 61.9 % (37.0-80.0); Platelet Count 281 K/mm3 (142-424); Red Blood Count 5.03 M/mm3 (4.20-5.40); White Blood Count 5.8 K/mm3 (4.8-10.8)
[2018-01-27 18:53] LABS: Alanine Aminotransferase 42 U/L (12-78); Alkaline Phosphatase 101 U/L (46-116); Anion Gap 11.8 mEq/L (5-15); Aspartate Amino Transferase 36 U/L (15-37); Bilirubin,Total 0.5 mg/dL (0.2-1.0); Blood Urea Nitrogen 10 mg/dL (7-18); Calcium 9.3 mg/dL (8.5-10.1); Carbon Dioxide 30 mmol/L (21.0-32.0); Chloride 104 mmol/L (98-107); Chol/HDL Ratio 5.9 (1-3.5); Cholesterol 230 mg/dL (140-200); Creatinine,Serum 0.68 mg/dL (0.55-1.02); Estimated Glomerular Filt Rate 98 ml/min (>60); GFR (African American) 118 ML/MIN (>60); Globulin 3.9 gm/dl (1.3-3.2); HDL Cholesterol 39 mg/dL (29-89); LDL Cholesterol 161 mg/dL (0-130); Potassium 3.8 mmoL/L (3.5-5.1); Sodium 142 mmol/L (136-145); T4 (Thyroxine) 10.7 ug/dl (4.7-13.3); Thyroid Stimulating Hormone 1.36 uIU/ml (0.358-3.740); Total Protein,Serum 7.9 gm/dL (6.4-8.2); Triglycerides 148 mg/dL (30-200); Triiodothryronine (T3) Uptake 28 % (31-39); VLDL Cholesterol 30 mg/dL (0-40)
[2018-01-27 19:04] LABS: Glucose 98 mg/dL (74-106)
[2018-02-01 06:13] LABS: Vitamin B12 1153 pg/mL (232-1245)
[2018-02-01 06:14] LABS: Vitamin D 25 Hydroxy 34.1 ng/mL (30.0-100.0)
== END ==
PROVIDERS: Visit Provider Nurse Practitioner Family
DX: R53.83 Other fatigue (principal)
CPT/HCPCS: 80053; 80061; 82607; 82652; 84436; 84443; 84479; 85025

== ENCOUNTER 2018-01-28 06:57 | Observation (INO) ==
--- NOTE | 2018-01-28 07:22 | Emergency Department Note ---
ED Disposition Clinical Impression: COPD (chronic obstructive pulmonary disease) Qualifiers: COPD type: unspecified COPD Qualified Code(s): J44.9 - Chronic obstructive pulmonary disease, unspecified Asthma with exacerbation Qualifiers: Asthma severity: moderate Asthma persistence: persistent Qualified Code(s): J45.41 - Moderate persistent asthma with (acute) exacerbation Disposition: Admitted as Observation Condition on Discharge: Good Referrals: Frank Donovan MD [Primary Care Provider] - - Critical Care Critical Care Time: No Attestation: On 01/28/18, the high probability of a clinically significant, sudden or life threatening deterioration of the following system(s) required my full and direct attention, intervention and personal management. The time I documented below is in addition to time spent performing reported procedures but includes the following listed in this critical care notation. Medical Decision Making - Medical Records Medical records reviewed: Yes: I reviewed the patient's medical records. - Rian Inquiry Pt receiving controlled substance: No Vital Signs: 01/28/18 06:58 01/28/18 07:22 01/28/18 08:00 Temperature 99.8 F H Temperature Source Temporal Artery Scan Pulse Rate 85 Pulse Rate [Right Radial] 88 91 H Respiratory Rate 22 16 Blood Pressure [Right Arm] 116/74 111/78 Blood Pressure Mean [Right Arm] 88 89 Blood Pressure Source [Right Arm] Automatic Cuff Automatic Cuff Blood Pressure Position [Right Arm] Sitting Supine 02 Sat by Pulse Oximetry 95 95 96 Oxygen Delivery Method Room Air Room Air Nasal Cannula Oxygen Flow Rate (LPM) 2 - Lab Data Lab Results 01/28/18 07:05: WBC 14.1 H D, RBC 5.09, Hgb 15.9, Hct 45.0, MCV 88.5, MCH 31.2, MCHC 35.2, RDW 12.1, Plt Count 294, MPV 6.7 L, Neut % (Auto) 88.3 H, Lymph % ( Auto) 5.9 L, [place] % (Auto) 4.6, Eos % (Auto) 1.1, Baso % (Auto) 0.1, Neut # ( Auto) 12.4 H, Lymph # (Auto) 0.8, [place] # (Auto) 0.7, Eos # (Auto) 0.2, Baso # ( Auto) 0.0, Total Counted 100, Neutrophils % (Manual) 89 H, Lymphocytes % (Manual ) 5 L, Atypical Lymphs % 2.0, Monocytes % (Manual) 4, Platelet Estimate Normal, Stomatocytes 1+ 01/28/18 07:05: Sodium 140, Potassium 3.6, Chloride 104, Carbon Dioxide 29, Anion Gap 10.6, BUN 6 L D, Creatinine 0.61, Estimated Creat Clear 96, Estimated GFR 111, Est GFR ( Amer) 134, Glucose 115 H, Calcium 8.8, Total Bilirubin 0.7, AST 31, ALT 39, Alkaline Phosphatase 100, Troponin I < 0.02, Total Protein 7.9, Albumin 3.8, Globulin 4.1 H, Albumin/Globulin Ratio 0.9 L, Amylase 45, Lipase 66 L 01/28/18 07:05: Lactic Acid 1.7 01/28/18 07:05: D-Dimer 265 Result diagrams: 01/28/18 07:05 01/28/18 07:05 Orders (Tests/Meds): ED MEDICATIONS Discontinued Medications Generic Name Dose Route Start Last Admin Trade Name Arthurq PRN Reason Stop Dose Admin Albuterol/Ipratropium 3 ml 01/28/18 07:10 01/28/18 07:58 Duoneb 3ml Neb IH 01/28/18 07:11 3 ml ONCE ONE Administration Methylprednisolone Sodium Succinate 125 mg 01/28/18 07:10 01/28/18 07:28 Solu-Medrol 125mg/2ml Vial IV 01/28/18 07:11 125 mg ONCE ONE Administration ORDERS Category Date Time Status XR chest 2V Stat Exams 01/28/18 07:09 Taken Blood Culture Stat Micro 01/28/18 07:20 Received - Radiology Data #1 Image(s): Chest, Other (no gross infiltrate) - ECG Data Tracing #1 Normal Sinus Rhythm: Yes Arrhythmias present: other (no stemi) Resp/SOB HPI - General Chief Complaint: Shortness of Breath/Dyspnea Stated Complaint: short of breath Time Seen by Provider: 01/28/18 07:19 Mode of Arrival: Ambulatory Source of Information: Patient Limitations: No Limitations Description of Symptoms (Recalled from ER Triage Doc. by RN): short of breath / awoken by panik attack, recent pneumonia - History of Present Illness mild to mod shortness of breath and cough today, hx smoking, +feverish, pleuritic chest pain w/ cough, no lethargy, speech fluent MD Complaint: shortness of breath, cough Severity: mild Consistency/Duration: intermittent - Related Data Home Medications Medication Instructions Recorded Confirmed Buprenorphine HCl/Naloxone HCl 2.5 film SL DAILY 12/11/17 01/28/18 [Suboxone 8 mg-2 mg Sl Film] Nicotine [Nicotine Patch] 1 patch TRANSDERMA Q24H 12/11/17 01/28/18 propranolol 10 mg tablet 10 mg PO Q6H 01/27/18 01/28/18 Previous Rx's Medication Instructions Recorded amlodipine 10 mg tablet 10 mg PO DAILY #30 tab 01/06/18 hydroxyzine pamoate 25 mg capsule 25 mg PO QHS PRN #20 cap 01/06/18 sertraline 100 mg tablet 100 mg PO DAILY #30 tab 01/06/18 gabapentin 800 mg tablet 800 mg PO TID 30 Days #90 tab 01/27/18 Allergies Allergy/AdvReac Type Severity Reaction Status Date / Time No Known Allergies Allergy Verified 01/27/18 11:50 [facility] History I have reviewed the patient's past medical history: Yes Medical History: Reports:: Anxiety, Depression, Hypertension Denies:: Cancer, Diabetes Mellitus Type 1, Diabetes Mellitus Type 2, MRSA Comment: NERVE DAMAGE, BIPOLAR Laterality Cases: Bilateral: Other Other Surgeries: Yes: , Hernia Repair, Hysterectomy-Total, Tubal Ligation Amputation: No Fractures: Yes Comment: RHINOPLASTY - Social History Smoking Status: Current every day smoker Tobacco Type: cigarettes # Packs/Day (cigarettes): 1 Alcohol Intake: never Alcohol Intake Frequency:: holidays/special occasions only Substance Use Type: opiates Occupational Status: employed - Psychiatric History Expresses thoughts of harming self/others: None Suicide Plan Description: No Plan Pschychiatric History:: Reports:: Anxiety, Depression Family Hx:: Hypertension, Cancer ROS Obtained: Yes Systems reviewed as appropriate & no additional complaints - Constitutional Constitutional: Reports body ache - Respiratory Respiratory: Yes as per HPI Physical Exam - General General appearance: alert, in no apparent distress - Head Head exam: normocephalic - Eye Eye exam: Present: EOMI - ENT ENT exam: Present: mucous membranes moist - Neck Neck exam: Present: normal inspection - Chest Chest inspection: Present: normal inspection - Respiratory Respiratory exam: Present: wheezes. Absent: stridor - Cardiovascular Cardiovascular exam: Present: regular rate, normal rhythm - Abdominal Exam Abdominal exam: Present: soft. Absent: tenderness - Extremities Exam Extremities exam: Present: normal inspection, full ROM - Neurological Exam Neurological exam: Present: alert, oriented X3 - Psychiatric Psychiatric exam: Present: normal affect, normal mood - Skin Skin exam: Present: warm, dry
[2018-01-28 07:28] LABS: Basophils % 0.1 % (0.1-2.0); Eosinophils # 0.2 K/mm3 (0.0-0.4); Eosinophils % 1.1 % (0.1-12.0); Hemoglobin 15.9 g/dL (12.2-16.2); Lymphocytes # 0.8 K/mm3 (0.7-4.5); Lymphocytes % 5.9 K/mm3 (10-50); Mean Corpuscular HGB Conc 35.2 g/dL (31.8-35.4); Mean Corpuscular Hemoglobin 31.2 pg (27.0-31.2); Mean Corpuscular Volume 88.5 fl (81-99); Mean Platelet Volume 6.7 fl (7.4-10.4); Monocytes # 0.7 K/mm3 (0.1-1.0); Monocytes % 4.6 % (1.7-9.3); Neutrophils # 12.4 K/mm3 (1.8-7.8); Neutrophils % 88.3 % (37.0-80.0); Platelet Count 294 K/mm3 (142-424); Red Blood Count 5.09 M/mm3 (4.20-5.40); Red Cell Distribution Width 12.1 % (11.5-17.5); White Blood Count 14.1 K/mm3 (4.8-10.8)
[2018-01-28 07:44] LABS: Alanine Aminotransferase 39 U/L (12-78); Albumin Level 3.8 gm/dL (3.4-5.0); Albumin/Globulin Ratio 0.9 (1.1-1.8); Alkaline Phosphatase 100 U/L (46-116); Amylase 45 U/L (25-125); Anion Gap 10.6 mEq/L (5-15); Aspartate Amino Transferase 31 U/L (15-37); Bilirubin,Total 0.7 mg/dL (0.2-1.0); Blood Urea Nitrogen 6 mg/dL (7-18); Calcium 8.8 mg/dL (8.5-10.1); Carbon Dioxide 29 mmol/L (21.0-32.0); Chloride 104 mmol/L (98-107); Globulin 4.1 gm/dl (1.3-3.2); Glucose 115 mg/dL (74-106); Lipase 66 u/L (73-393); Potassium 3.6 mmoL/L (3.5-5.1); Sodium 140 mmol/L (136-145); Total Protein,Serum 7.9 gm/dL (6.4-8.2)
[2018-01-28 07:50] LABS: Lymphocytes % 5 % (10-50); Monocytes % 4 % (2-9); Neutrophils % 89 % (42-76); Stomatocytes 1+; Total Cells Counted 100
--- NOTE | 2018-01-28 08:33 | History & Physical Report ---
*Admission Date: 01/28/18 *Chief complaint: sob *History of present illness: this wf with known copd/asthma issues became sob this am and was brought by ems ild to mod shortness of breath and cough today, hx smoking, +feverish, pleuritic chest pain w/ cough, no lethargy, speech fluent- pt with 02 sat of 86 on room air - no hx of dvt H History I have reviewed the patient's past medical history: Yes Medical History: Reports:: Anxiety, Depression, Hypertension Denies:: Cancer, Diabetes Mellitus Type 1, Diabetes Mellitus Type 2, MRSA Laterality Cases: Bilateral: Other Other Surgeries: Yes: , Hernia Repair, Hysterectomy-Total, Tubal Ligation Amputation: No Fractures: Yes - *Social History Smoking Status: Current every day smoker Tobacco Type: cigarettes # Packs/Day (cigarettes): 1 Alcohol Intake: never Alcohol Intake Frequency:: holidays/special occasions only Substance Use Type: opiates Occupational Status: employed - Psychiatric History Expresses thoughts of harming self/others: None Suicide Plan Description: No Plan Pschychiatric History:: Reports:: Anxiety, Depression *Family Hx:: Hypertension, Cancer Review of Systems - Review of Systems Review of systems:: pertinent systems reviewed and negative unless documented below - Constitutional Denies headache(s) - Eyes Denies change in vision - ENT Denies sore throat - *Cardiovascular Reports chest pain at rest, Denies chest pain with activity - *Respiratory Reports cough, Reports shortness of breath - *Gastrointestinal Denies abdominal pain - *Genitourinary Denies blood in urine - *Musculoskeletal Denies joint pain, Denies joint swelling - Integumentary/Breasts Denies rash - *Neurologic Denies headache(s) - Psychiatric Reports anxiety Meds Home Medications Medication Instructions Recorded Confirmed Type Buprenorphine HCl/Naloxone HCl 2.5 film SL DAILY 12/11/17 01/28/18 History [Suboxone 8 mg-2 mg Sl Film] Nicotine [Nicotine Patch] 1 patch TRANSDERMA Q24H 12/11/17 01/28/18 History propranolol 10 mg tablet 10 mg PO Q6H 01/27/18 01/28/18 History Allergies Allergy/AdvReac Type Severity Reaction Status Date / Time No Known Allergies Allergy Verified 01/27/18 11:50 Exam Vital signs and Labs for Last 24 Hours: Temp Pulse Resp BP Pulse Ox 99.8 F H 85 16 111/78 96 01/28/18 06:58 01/28/18 08:00 01/28/18 07:22 01/28/18 07:22 01/28/18 08:00 Laboratory Results - last 24 hr 01/28/18 07:05: WBC 14.1 H D, RBC 5.09, Hgb 15.9, Hct 45.0, MCV 88.5, MCH 31.2, MCHC 35.2, RDW 12.1, Plt Count 294, MPV 6.7 L, Neut % (Auto) 88.3 H, Lymph % ( Auto) 5.9 L, [place] % (Auto) 4.6, Eos % (Auto) 1.1, Baso % (Auto) 0.1, Neut # ( Auto) 12.4 H, Lymph # (Auto) 0.8, [place] # (Auto) 0.7, Eos # (Auto) 0.2, Baso # ( Auto) 0.0, Total Counted 100, Neutrophils % (Manual) 89 H, Lymphocytes % (Manual ) 5 L, Atypical Lymphs % 2.0, Monocytes % (Manual) 4, Platelet Estimate Normal, Stomatocytes 1+ 01/28/18 07:05: Sodium 140, Potassium 3.6, Chloride 104, Carbon Dioxide 29, Anion Gap 10.6, BUN 6 L D, Creatinine 0.61, Estimated Creat Clear 96, Estimated GFR 111, Est GFR ( Amer) 134, Glucose 115 H, Calcium 8.8, Total Bilirubin 0.7, AST 31, ALT 39, Alkaline Phosphatase 100, Troponin I < 0.02, Total Protein 7.9, Albumin 3.8, Globulin 4.1 H, Albumin/Globulin Ratio 0.9 L, Amylase 45, Lipase 66 L 01/28/18 07:05: Lactic Acid 1.7 01/28/18 07:05: D-Dimer 265 I & O for Last 24 hours: Intake & Output 01/25/18 01/26/18 01/27/18 01/28/18 11:59 11:59 11:59 11:59 Weight 260 lb 2.327 oz - Constitutional no acute distress, thin - *Routine HEENT Exam Head: Present: normocephalic Eye: Present: EOMI, PERRL ENT: Present: mucous membranes dry - *Routine Neck Exam Present: supple - *Routine Respiratory Exam Present: decreased breath sounds, rhonchi - *Routine Cardiovascular Exam Present: RRR. Absent: murmur - *Routine Abdominal Exam Present: soft - *Routine Extremities Exam Present: full ROM. Absent: calf tenderness - *Routine Skin Exam Present: intact - *Routine Neurological Exam Present: alert, oriented X3, CN II-XII intact - Routine Psychiatric Exam Present: anxious H&P: Result - Labs Labs: Short CBC 01/28/18 Range/Units 07:05 WBC 14.1 H D (4.8-10.8) K/mm3 Hgb 15.9 (12.2-16.2) g/dL Hct 45.0 (37.0-47.0) % Plt Count 294 (142-424) K/mm3 BMP 01/28/18 07:05 Sodium 140 Potassium 3.6 Chloride 104 Carbon Dioxide 29 BUN 6 L D Creatinine 0.61 Glucose 115 H Calcium 8.8 Cardiac Enzymes 01/28/18 Range/Units 07:05 Troponin I < 0.02 (0.00-0.06) ng/ml Liver Function 01/28/18 Range/Units 07:05 Total Bilirubin 0.7 (0.2-1.0) mg/dL AST 31 (15-37) U/L ALT 39 (12-78) U/L Alkaline Phosphatase 100 (46-116) U/L Albumin 3.8 (3.4-5.0) gm/dL Assessment and Plan (1) Asthma with exacerbation Current visit: Yes Status: Acute Qualifiers: Asthma severity: moderate Asthma persistence: persistent Qualified Code(s ): J45.41 - Moderate persistent asthma with (acute) exacerbation Category: Medical Code(s): J45.901 - Unspecified asthma with (acute) exacerbation (2) COPD (chronic obstructive pulmonary disease) Current visit: Yes Status: Acute Qualifiers: COPD type: unspecified COPD Qualified Code(s): J44.9 - Chronic obstructive pulmonary disease, unspecified Category: Medical Code(s): J44.9 - Chronic obstructive pulmonary disease, unspecified (3) Anxiety Current visit: No Status: Acute Category: Medical Code(s): F41.9 - Anxiety disorder, unspecified (4) Tobacco use Current visit: Yes Status: Acute Category: Social Hx Code(s): Z72.0 - Tobacco use
--- NOTE | 2018-01-28 09:45 | Pharmacy Consult Notes ---
[facility] Pharmacy VTE Monitoring - Patient Demographics Admission date: 01/28/18 Report Date: 01/28/18 Time: 09:45 Allergies/Adverse Reactions: Patient Allergies No Known Allergies Allergy (Verified 01/27/18 11:50) Height: 1.55 m Weight: 52.758 kg Patient Problems: Current Active Problems COPD (chronic obstructive pulmonary disease) (Acute) Asthma with exacerbation (Acute) Tobacco use (Acute) - VTE Risk Labs: VTE Related Lab Results Hgb 15.9 g/dL (12.2-16.2) 01/28/18 07:05 Hct 45.0 % (37.0-47.0) 01/28/18 07:05 Plt Count 294 K/mm3 (142-424) 01/28/18 07:05 BUN 6 mg/dL (7-18) L D 01/28/18 07:05 Creatinine 0.61 mg/dL (0.55-1.02) 01/28/18 07:05 Estimated Creat Clear 96 mL/min (0-300) 01/28/18 07:05 - Prophylaxis VTE Prophylaxis Ordered?: Yes Types of VTE Prophylaxis: TEDS Knee High Location of Applied Device: Bilateral Lower Extremeties - VTE Diagnosis Confirmed Treatment or plan recommended: Continue Current Treatment
[2018-01-29 06:56] LABS: Eosinophils % 0.1 % (0.1-12.0); Hematocrit 42.5 % (37.0-47.0); Hemoglobin 14.6 g/dL (12.2-16.2); Lymphocytes # 1.1 K/mm3 (0.7-4.5); Lymphocytes % 8.6 K/mm3 (10-50); Mean Corpuscular HGB Conc 34.4 g/dL (31.8-35.4); Mean Platelet Volume 6.9 fl (7.4-10.4); Monocytes # 0.3 K/mm3 (0.1-1.0); Monocytes % 2.4 % (1.7-9.3); Neutrophils # 11.1 K/mm3 (1.8-7.8); Neutrophils % 88.9 % (37.0-80.0); Platelet Count 269 K/mm3 (142-424); Red Blood Count 4.73 M/mm3 (4.20-5.40); White Blood Count 12.4 K/mm3 (4.8-10.8)
[2018-01-29 07:07] LABS: Lymphocytes % 10 % (10-50); Neutrophils % 84 % (42-76); RBC Morphology Normal; Total Cells Counted 100
[2018-01-29 07:11] LABS: Albumin/Globulin Ratio 0.8 (1.1-1.8); Anion Gap 10.8 mEq/L (5-15); Bilirubin,Total 0.5 mg/dL (0.2-1.0); Calcium 8.6 mg/dL (8.5-10.1); Globulin 3.9 gm/dl (1.3-3.2); Potassium 3.8 mmoL/L (3.5-5.1); Total Protein,Serum 6.9 gm/dL (6.4-8.2)
--- NOTE | 2018-01-29 08:29 | Progress Note ---
Internal Medicine - PN: Subj *Date: 01/29/18 *Time: 08:26 Interval history: doing better this am - room o2 sat improved - no hemoptysis - discussed tob and need to use inhalers and do pft as op Exam Vital signs and Labs for Last 24 Hours: Temp Pulse Resp BP Pulse Ox 98.2 F 84 16 117/75 90 L 01/29/18 08:00 01/29/18 08:00 01/29/18 08:00 01/29/18 08:00 01/29/18 08:00 Laboratory Results - last 24 hr 01/29/18 06:26: WBC 12.4 H, RBC 4.73, Hgb 14.6, Hct 42.5, MCV 90.0, MCH 31.0, MCHC 34.4, RDW 12.0, Plt Count 269, MPV 6.9 L, Neut % (Auto) 88.9 H, Lymph % ( Auto) 8.6 L, [place] % (Auto) 2.4, Eos % (Auto) 0.1, Baso % (Auto) 0.0 L, Neut # ( Auto) 11.1 H, Lymph # (Auto) 1.1, [place] # (Auto) 0.3, Eos # (Auto) 0.0, Baso # ( Auto) 0.0, Total Counted 100, Neutrophils % (Manual) 84 H, Band Neutrophils % 6.0, Lymphocytes % (Manual) 10, Platelet Estimate Normal, RBC Morphology Normal 01/29/18 06:26: Sodium 141, Potassium 3.8, Chloride 106, Carbon Dioxide 28, Anion Gap 10.8, BUN 9 D, Creatinine 0.55, Estimated Creat Clear 118, Estimated GFR 125, Est GFR ( Amer) 151, Glucose 120 H, Calcium 8.6, Magnesium 1.8, Total Bilirubin 0.5, AST 19 D, ALT 28 D, Alkaline Phosphatase 80, Total Protein 6.9, Albumin 3.0 L D, Globulin 3.9 H, Albumin/Globulin Ratio 0.8 L I & O for Last 24 hours: Intake & Output 01/26/18 01/27/18 01/28/18 01/29/18 11:59 11:59 11:59 11:59 Intake Total 2006 Output Total 300 / 300 Balance 1707 / 1707 Weight 116 lb 5 oz Microbiology Reports for the Last 24 Hours: Microbiology 01/28/18 07:20 Blood Blood Culture - Preliminary NO GROWTH AFTER 24 HOURS 01/28/18 07:20 Blood Blood Culture - Preliminary NO GROWTH AFTER 24 HOURS - Constitutional no acute distress, thin - *Routine HEENT Exam Head: Present: normocephalic Eye: Present: EOMI, PERRL ENT: Present: mucous membranes dry - *Routine Neck Exam Present: supple - *Routine Respiratory Exam Present: rhonchi. Absent: respiratory distress - *Routine Cardiovascular Exam Present: RRR. Absent: murmur - *Routine Abdominal Exam Present: soft - *Routine Extremities Exam Absent: edema, calf tenderness - *Routine Skin Exam Present: intact - *Routine Neurological Exam Present: alert, oriented X3, CN II-XII intact - Routine Psychiatric Exam Comments: anxious Assessment and Plan (1) Asthma with exacerbation Current visit: Yes Status: Acute Qualifiers: Asthma severity: moderate Asthma persistence: persistent Qualified Code(s ): J45.41 - Moderate persistent asthma with (acute) exacerbation Category: Medical Code(s): J45.901 - Unspecified asthma with (acute) exacerbation (2) COPD (chronic obstructive pulmonary disease) Current visit: Yes Status: Acute Qualifiers: COPD type: unspecified COPD Qualified Code(s): J44.9 - Chronic obstructive pulmonary disease, unspecified Category: Medical Code(s): J44.9 - Chronic obstructive pulmonary disease, unspecified (3) Anxiety Current visit: No Status: Acute Category: Medical Code(s): F41.9 - Anxiety disorder, unspecified (4) Tobacco use Current visit: Yes Status: Acute Category: Social Hx Code(s): Z72.0 - Tobacco use
--- NOTE | 2018-01-29 19:46 | Discharge Summary ---
General - General Admission date:: 01/28/18 Discharge date: 01/29/18 HPI HPI: this wf with known copd/asthma issues became sob this am and was brought by ems ild to mod shortness of breath and cough today, hx smoking, +feverish, pleuritic chest pain w/ cough, no lethargy, speech fluent- pt with 02 sat of 86 on room air - no hx of dvt or pe Hospital Course Hospital Course: pt did well with ivf and steroids and resp treatment and abx - she was able to maintain o2 sat w/o supp o2 - she felt less sob and exam was improved Objective Vital signs: Temp Pulse Resp BP Pulse Ox 98.0 F 80 16 131/85 91 L 01/29/18 15:22 01/29/18 18:59 01/29/18 15:22 01/29/18 15:22 01/29/18 15:22 no acute distress, thin - *Routine HEENT Exam Head: Present: normocephalic Eye: Present: EOMI, PERRL ENT: Present: mucous membranes moist - *Routine Neck Exam Present: supple. Absent: JVD - *Routine Respiratory Exam Present: CTA bilaterally. Absent: respiratory distress - *Routine Cardiovascular Exam Present: RRR, murmur. Absent: gallop, rubs - *Routine Abdominal Exam Present: soft - *Routine Extremities Exam Absent: cyanosis, clubbing, edema, calf tenderness - *Routine Skin Exam Present: intact - *Routine Neurological Exam Present: alert, oriented X3, CN II-XII intact - Routine Psychiatric Exam Present: anxious. Absent: suicidal ideation Results Labs on day of discharge: Labs from last 24 hours 01/29/18 01/29/18 06:26 06:26 WBC 12.4 H RBC 4.73 Hgb 14.6 Hct 42.5 MCV 90.0 MCH 31.0 MCHC 34.4 RDW 12.0 Plt Count 269 MPV 6.9 L Neut % (Auto) 88.9 H Lymph % (Auto) 8.6 L [place] % (Auto) 2.4 Eos % (Auto) 0.1 Baso % (Auto) 0.0 L Neut # (Auto) 11.1 H Lymph # (Auto) 1.1 [place] # (Auto) 0.3 Eos # (Auto) 0.0 Baso # (Auto) 0.0 Total Counted 100 Neutrophils % (Manual) 84 H Band Neutrophils % 6.0 Lymphocytes % (Manual) 10 Platelet Estimate Normal RBC Morphology Normal Sodium 141 Potassium 3.8 Chloride 106 Carbon Dioxide 28 Anion Gap 10.8 BUN 9 D Creatinine 0.55 Estimated Creat Clear 118 Estimated GFR 125 Est GFR ( Amer) 151 Glucose 120 H Calcium 8.6 Magnesium 1.8 Total Bilirubin 0.5 AST 19 D ALT 28 D Alkaline Phosphatase 80 Total Protein 6.9 Albumin 3.0 L D Globulin 3.9 H Albumin/Globulin Ratio 0.8 L Preliminary micro results at discharge 01/28/18 07:20 Blood Culture - Preliminary Blood NO GROWTH AFTER 24 HOURS 01/28/18 07:20 Blood Culture - Preliminary Blood NO GROWTH AFTER 24 HOURS DS: Diagnosis - Discharge Diagnosis (1) Asthma with exacerbation Status: Acute (2) COPD (chronic obstructive pulmonary disease) Status: Acute (3) Anxiety Status: Acute (4) Tobacco use Status: Acute Discharge Plan - Patient Discharge Instructions ACTIVITY: Continue current activity DIET: continue same diet Patient Instructions: Asthma -- Adult - Follow up Plan Disposition: Home, Self-Senior Care Medications: Home Medications Medication Instructions Recorded Confirmed Type Buprenorphine HCl/Naloxone HCl 2.5 film SL DAILY 12/11/17 01/28/18 History [Suboxone 8 mg-2 mg Sl Film] propranolol 10 mg tablet 10 mg PO TID 01/27/18 01/29/18 History Nicotine [Nicotine Patch 21 mg TD DAILY 01/29/18 01/29/18 History 21mg/24hrs] Prescriptions/Medication Reconciliation: New Nicotine [Nicoderm 21mg/24hr patch] 21 mg TD Q24H patch.td24 Azithromycin [Zithromax 250mg tab] 250 mg PO DIRECTED #6 tab Benzonatate [Tessalon [place] 100mg Cap] 100 mg PO TID #30 cap predniSONE [Prednisone 20mg Tab] 20 mg PO DAILY #10 tab ALPRAZolam [Xanax 0.25mg tab] 0.25 mg PO TID #15 tablet Continue amlodipine 10 mg tablet 10 mg PO DAILY #30 tab sertraline 100 mg tablet 100 mg PO DAILY #30 tab hydroxyzine pamoate 25 mg capsule 25 mg PO QHS PRN #20 cap PRN Reason: anxiety propranolol 10 mg tablet 10 mg PO TID gabapentin 800 mg tablet 800 mg PO TID 30 Days #90 tab Buprenorphine HCl/Naloxone HCl [Suboxone 8 mg-2 mg Sl Film] 2.5 film SL DAILY Nicotine [Nicotine Patch 21mg/24hrs] 21 mg TD DAILY
== END 2018-01-29 20:30 | disposition home or self-care (01) ==
LOC: ER 06:57 → 2ND 08:27 → INTOOBSV 09:29 → 2ND 09:30
PROVIDERS: ADMIT Emergency Medicine; ATTEND Emergency Medicine

== ENCOUNTER → 2018-02-23 11:42 | Outpatient (REF) | payer MEDICAID, SELFPAY ==
[2018-02-23 19:50] LABS: Amphetamine/Metha Screen,Urine Negative ng/mL (<1000); Barbiturates Screen,Urine Negative ng/mL (<200); Benzodiazepines Screen,Urine Negative ng/mL (200); Cannabinoid Screen,Urine Negative ng/mL (<50); Cocaine Screen,Urine Negative ng/g (<300); Methadone Screen,Urine Negative ng/mL (<300); Opiate Screen,Urine Negative ng/mL (<300); Phencyclidine Screen,Urine Negative ng/mL (<25)
== END ==
LOC: LAB 11:42
PROVIDERS: Visit Provider Nurse Practitioner Family
DX: Z79.899 Other long term (current) drug therapy (principal)
CPT/HCPCS: 80305

== ENCOUNTER → 2018-03-01 13:50 | Outpatient (REF) | payer MEDICAID, SELFPAY ==
[2018-03-01 14:55] LABS: Amphetamine/Metha Screen,Urine Negative ng/mL (<1000); Barbiturates Screen,Urine Negative ng/mL (<200); Benzodiazepines Screen,Urine Positive ng/mL (200); Cannabinoid Screen,Urine Negative ng/mL (<50); Cocaine Screen,Urine Negative ng/g (<300); Methadone Screen,Urine Negative ng/mL (<300); Opiate Screen,Urine Negative ng/mL (<300); Phencyclidine Screen,Urine Negative ng/mL (<25)
== END ==
LOC: LAB 13:50
PROVIDERS: Visit Provider Nurse Practitioner Family
DX: G62.9 Polyneuropathy, unspecified (principal); Z79.899 Other long term (current) drug therapy
CPT/HCPCS: 80305

== ENCOUNTER → 2018-07-10 15:22 | Outpatient (CLI) | payer MEDICAID, SELFPAY ==
[2018-07-10 19:01] LABS: Free T4 (Free Thyroxine) 0.99 ng/dl (0.76-1.46); Free Thyroxine Index 2.8 ug/dL (5.93-13.13); T4 (Thyroxine) 10.2 ug/dl (4.7-13.3); Thyroid Stimulating Hormone 1.82 uIU/ml (0.358-3.740); Triiodothryronine (T3) Uptake 27 % (31-39)
== END ==
PROVIDERS: PCP Internal Medicine Adolescent Medicine; Visit Provider Internal Medicine Adolescent Medicine
DX: R25.1 Tremor, unspecified (principal)
CPT/HCPCS: 36415; 84436; 84439; 84443; 84479

== ENCOUNTER → 2018-07-25 10:03 | Outpatient (CLI) | payer MEDICAID, SELFPAY ==
[2018-07-26 15:58] LABS: Estradiol 348.5 pg/mL (.); FSH 9.2 mIU/mL (.); LH 11.1 mIU/mL (.)
== END ==
PROVIDERS: PCP Internal Medicine Adolescent Medicine; Visit Provider Nurse Practitioner Obstetrics & Gynecology
DX: N95.1 Menopausal and female climacteric states (principal)
CPT/HCPCS: 36415; 82670; 83001; 83002

== ENCOUNTER → 2019-02-06 16:39 | Outpatient (CLI) | payer MEDICAID, SELFPAY ==
[2019-02-06 19:09] LABS: Free Thyroxine Index 2.9 ug/dL (5.93-13.13); T4 (Thyroxine) 11.6 ug/dl (4.7-13.3); Thyroid Stimulating Hormone 1.35 uIU/ml (0.358-3.740); Triiodothryronine (T3) Uptake 25 % (31-39)
== END ==
PROVIDERS: Visit Provider Internal Medicine Adolescent Medicine
DX: E03.9 Hypothyroidism, unspecified (principal)
CPT/HCPCS: 36415; 84436; 84443; 84479

== ENCOUNTER → 2020-04-08 09:35 | Outpatient (CLI) | payer OTHER, SELFPAY ==
--- NOTE | 2020-04-08 09:58 | XR_ITS ---
PROCEDURE: XR CHEST 2V CLINICAL HISTORY: COUGH Cough, smoker COMPARISON: CXR CHEST(2 VIEWS-NOT PORTABLE) from 08/29/2016 CXR2V XR chest 2V from 12/11/[address] angio chest from 12/12/2017 CXR2V XR chest 2V from 01/28/2018 FINDINGS: The cardiomediastinal silhouette and pulmonary vascularity are within normal limits. The lungs are clear without infiltrates, suspicious nodules, or pleural effusions. Calcified granuloma is present in the left lower lobe. No acute bony findings IMPRESSION: No acute findings. Dictated by: Trpi Will MD 04/08/2020 14:21 Electronically signed by Trip Will MD in [place] 04/08/2020 14:21
[2020-04-08 10:20] LABS: Basophils % 0.2 % (0.1-2.0); Eosinophils % 0.2 % (0.1-12.0); Hematocrit 46.6 % (37.0-47.0); Hemoglobin 16.2 g/dL (12.2-16.2); Lymphocytes # 1.7 K/mm3 (0.7-4.5); Lymphocytes % 29.3 % (10-50); Mean Corpuscular HGB Conc 34.8 g/dL (31.8-35.4); Mean Corpuscular Hemoglobin 32.5 pg (27.0-31.2); Mean Corpuscular Volume 93.4 fl (81-99); Mean Platelet Volume 7.2 fl (7.4-10.4); Monocytes # 0.2 K/mm3 (0.1-1.0); Monocytes % 4.2 % (1.7-9.3); Neutrophils # 3.8 K/mm3 (1.8-7.8); Neutrophils % 66.3 % (37.0-80.0); Platelet Count 250 K/mm3 (142-424); Red Cell Distribution Width 13.3 % (11.5-17.5); White Blood Count 5.7 K/mm3 (4.8-10.8)
[2020-04-08 11:17] LABS: Alanine Aminotransferase 27 U/L (12-78); Alkaline Phosphatase 92 U/L (38-126); Aspartate Amino Transferase 47 U/L (14-36); Bilirubin,Total 0.7 mg/dl (0.2-1.3); Blood Urea Nitrogen 5 mg/dl (7-17); Estimated Glomerular Filt Rate 137 ml/min (>60); GFR (African American) 166 ML/MIN (>60)
[2020-04-08 11:18] LABS: Albumin Level 4.1 g/dl (3.5-5.0); Albumin/Globulin Ratio 1.1 (1.1-1.8); Calcium 9.1 mg/dl (8.4-10.2); Coronavirus 19 IgG Antibody Negative (Negative); Coronavirus 19 IgM Antibody Negative (Negative); Globulin 3.9 g/dL (1.3-3.2); Glucose 111 mg/dl (74-100)
[2020-04-08 11:44] LABS: Anion Gap 10.9 mEq/L (5-15); Carbon Dioxide 30 mmol/L (22.0-30.0); Chloride 100 mmol/L (98-107); Potassium 3.9 mmoL/L (3.5-5.1); Sodium 137 mmol/L (136-145)
[2020-04-08 11:49] LABS: Thyroid Stimulating Hormone 3.36 uIU/mL (0.465-4.68)
== END ==
LOC: LAB 09:38 → RAD 09:55
PROVIDERS: PCP Internal Medicine Adolescent Medicine; Visit Provider Internal Medicine Adolescent Medicine
DX: R05 Cough (principal); E03.9 Hypothyroidism, unspecified
CPT/HCPCS: 36415; 71046; 80053; 84443; 85025; 86328

== ENCOUNTER → 2020-05-14 11:43 | Outpatient (CLI) | payer OTHER, SELFPAY ==
--- NOTE | 2020-05-14 12:12 | XR_ITS ---
PROCEDURE: XR CHEST 2V CLINICAL HISTORY: COUGH, EXPOSURE TO 2019 NOVEL CORONAVIRUS COMPARISON: CR CXR CHEST(2 VIEWS-NOT PORTABLE) from 08/29/2016 CR CXR2V XR chest 2V from 12/11/2017 CR CXR2V XR chest 2V from 01/28/2018 CR XR CHEST 2V from 04/08/2020 FINDINGS: The cardiomediastinal silhouette and pulmonary vascularity are within normal limits. The lungs are clear without infiltrates, suspicious nodules, or pleural effusions. No acute bony abnormalities. IMPRESSION: No acute findings. Dictated b Trip Will MD 05/14/2020 13:39 Trip Will MD in [place] 05/14/2020 13:39
== END ==
LOC: LAB 11:44 → RAD 11:55
PROVIDERS: PCP Internal Medicine Adolescent Medicine; Visit Provider Internal Medicine Adolescent Medicine
DX: Z03.818 Encounter for observation for suspected exposure to other biological agents ruled out (principal); R05 Cough
CPT/HCPCS: 71046; U0003

== ENCOUNTER → 2020-08-19 11:41 | Outpatient (CLI) | payer OTHER, SELFPAY | PROVIDERS: PCP Internal Medicine Adolescent Medicine; Visit Provider Internal Medicine Adolescent Medicine | DX: Z03.818 Encounter for observation for suspected exposure to other biological agents ruled out (principal) | CPT/HCPCS: U0003 ==

== ENCOUNTER → 2020-08-26 15:44 | Outpatient (CLI) | payer OTHER, SELFPAY ==
--- NOTE | 2020-08-26 15:48 | XR_ITS ---
PROCEDURE: XR CHEST 2V CLINICAL HISTORY: COPD COMPARISON: CT AGCHEST CT angio chest from 12/12/2017 CR CXR2V XR chest 2V from 01/28/2018 CR XR CHEST 2V from 04/08/2020 DX XR CHEST 2V from 05/14/2020 FINDINGS: The cardiomediastinal silhouette and pulmonary vascularity are within normal limits. The lungs are clear without infiltrates, suspicious nodules, or pleural effusions. No acute bony abnormalities. IMPRESSION: No acute findings. Dictated by: Trip Will MD 08/26/2020 16:39 Trip Will MD in [place] 08/26/2020 16:39
== END ==
PROVIDERS: PCP Internal Medicine Adolescent Medicine; Visit Provider Internal Medicine Adolescent Medicine
DX: J44.1 Chronic obstructive pulmonary disease with (acute) exacerbation (principal)
CPT/HCPCS: 71046

== ENCOUNTER 2020-09-06 17:37 | Emergency (ER) | payer OTHER, SELFPAY ==
[2020-09-06 17:50] VITALS: BP 116/76; PULSE 73; RESP 20; TEMP 36.7; O2SAT 97; BMI 22.1
--- NOTE | 2020-09-06 18:16 | HMH.EDUTC ---
[facility] [place] Clinical Impression: Acute bronchitis Qualifiers: Bronchitis organism: other organism Qualified Code(s): J20.8 - Acute bronchitis due to other specified organisms Disposition: Home, Self-Care Condition on Discharge: Good Instructions: Acute Bronchitis Additional Instructions: continue antibiotics tessolon pearls for cough inhaler and nebs as needed if symptoms worsen or do not improve return Referrals: Gray Leos MD [Primary Care Provider] - Time of Disposition: 18:22 Medical Decision Making - Rian Inquiry Pt receiving controlled substance: No Vital Signs: 09/06/20 17:50 Temperature 98.1 F Temperature Source Oral Pulse Rate [Right Brachial] 73 Respiratory Rate 20 Blood Pressure [Right Arm] 116/76 Blood Pressure Mean [Right Arm] 89 Blood Pressure Source [Right Arm] Automatic Cuff Blood Pressure Position [Right Arm] Sitting 02 Sat by Pulse Oximetry 97 Oxygen Delivery Method Room Air [facility] [place] HPI - General Chief complaint: Urgent [facility] Stated complaint: runny nose, cough, congestion Time Seen by Provider: 09/06/20 18:16 Mode of Arrival: Ambulatory Source of Information: Patient Limitations: No Limitations Description of Symptoms (Recalled from Triage Doc. by RN): PATIENT REQUESTING COVID TEST. C/O COUGH, CHEST CONGESTION, AND SOA SINCE LAST WEEK HEENT Symptoms (Recalled from RN notes): No Resp Symptoms (Recalled from RN notes): Yes Skin Symptoms (Recalled from RN notes): No MS Symptoms (Recalled from RN notes): No Functional Status (Recalled from RN notes): WNL - History of Present Illness Provider Complaint: 40 yr old female presents for soa,cough,chest congestion, fatigue and wheezing for 1 week. pt states she has been on three antibiotics, steroids, and some other med. pt states she has a inhaler and neb at home. refuses covid at this time - Related Data Home Medications Medication Instructions Recorded Confirmed albuterol sulfate CONTINUOUS NEBULIZATION 30 Days 07/10/18 07/25/18 #270 ml buprenorphine 8 mg-naloxone 2 mg SUBLINGUAL 8 Days #20 tab 07/10/18 07/25/18 sublingual tablet buspirone 10 mg tablet PO 30 Days #90 tab 07/10/18 07/25/18 cetirizine 10 mg tablet PO 30 Days #30 tab 07/10/18 07/25/18 fluticasone propionate 50 INTRANASAL 30 Days #16 g 07/10/18 07/25/18 mcg/actuation nasal spray,suspension gabapentin 600 mg tablet PO 30 Days #90 tab 07/10/18 07/25/18 paroxetine HCl 10 mg tablet PO 30 Days #30 tab 07/10/18 07/25/18 propranolol 40 mg tablet PO 30 Days #120 tab 07/10/18 07/25/18 Previous Rx's Medication Instructions Recorded Benzonatate [Tessalon Perle 100mg 100 mg PO TID #30 cap 01/29/18 Cap] albuterol sulfate 90 mcg/actuation 2 puff INHALATION TID PRN #18 g 05/17/18 aerosol inhaler fluticasone furoate 100 1 inh INHALATION DAILY #28 each 06/09/18 mcg-vilanterol 25 mcg/dose inhalation powder estradiol 2 mg tablet 2 mg PO DAILY #30 tab 07/25/18 thyroid (pork) 15 mg tablet 15 mg PO DAILY #30 tab 07/25/18 Allergies Allergy/AdvReac Type Severity Reaction Status Date / Time No Known Allergies Allergy Verified 07/25/18 08:42 - Worker's Comp Is this a Worker's Comp case?: No [facility] History - Hepatitis A Screen Drug use history?: No High risk sexual behaviors?: No History of sexually transmitted infection?: No Currently employed?: No Childcare worker?: No Do you have indoor plumbing?: Yes Do you have electricity?: Yes Attestation statement:: This patient has been screened for Hepatitis A risk factors. I have reviewed the patient's past medical history: Yes Medical History: Reports:: Anxiety, Depression, Hypertension Denies:: Cancer, Diabetes Mellitus Type 1, Diabetes Mellitus Type 2, MRSA Comment: NERVE DAMAGE, BIPOLAR Laterality Cases: Bilateral: Other Other Surgeries: Yes: , Hernia Repair, Hysterectomy-Total, Tubal Ligation Amputation: No Fractures: Yes Comment: RHINOPLASTY - Social Histo
[2020-09-06 18:34] VITALS: BP 116/76; PULSE 73; RESP 20; TEMP 36.7; O2SAT 97
== END 2020-09-06 18:35 | disposition home or self-care (01) ==
PROVIDERS: Emergency Provider Nurse Practitioner Family; PCP Internal Medicine Adolescent Medicine
DX: J20.8 Acute bronchitis due to other specified organisms (principal); F41.8 Other specified anxiety disorders; I10 Essential (primary) hypertension; F17.210 Nicotine dependence, cigarettes, uncomplicated
CPT/HCPCS: 99201

== ENCOUNTER → 2020-10-14 16:53 | Outpatient (CLI) | payer OTHER, SELFPAY ==
--- NOTE | 2020-10-14 16:56 | XR_ITS ---
PROCEDURE: XR FOOT WT BEARING RT 3V CLINICAL INDICATION: foot pain COMPARISON: CR FTR3 FOOT-RT-3 VIEWS from 08/29/2016 CR FTR3 FOOT-RT-3 VIEWS from 09/30/2016 FINDINGS: No fracture or dislocation. No lytic or blastic change. There is normal mineralization. The joint spaces are well-preserved. No significant degenerative/arthritic changes. No erosive changes evident. Other findings:None. IMPRESSION: No acute findings. Dictated by: Trip Will MD 10/14/2020 17:42 Trip Will MD in [place] 10/14/2020 17:42
[2020-10-14 18:06] LABS: Basophils # 0.1 K/mm3 (0-0.2); Basophils % 1.2 % (0.1-2.0); Eosinophils % 0.4 % (0.1-12.0); Hematocrit 51.9 % (37.0-47.0); Hemoglobin 17.1 g/dL (12.2-16.2); Lymphocytes # 3.2 K/mm3 (0.7-4.5); Lymphocytes % 43.3 % (10-50); Mean Platelet Volume 7.5 fl (7.4-10.4); Monocytes # 0.4 K/mm3 (0.1-1.0); Monocytes % 5.8 % (1.7-9.3); Neutrophils # 3.6 K/mm3 (1.8-7.8); Neutrophils % 49.3 % (37.0-80.0); Platelet Count 377 K/mm3 (142-424); Red Blood Count 5.35 M/mm3 (4.20-5.40); Red Cell Distribution Width 12.8 % (11.5-17.5); White Blood Count 7.3 K/mm3 (4.8-10.8)
[2020-10-14 18:25] LABS: Alanine Aminotransferase 17 U/L (12-78); Albumin Level 4.1 g/dl (3.5-5.0); Albumin/Globulin Ratio 1.2 (1.1-1.8); Alkaline Phosphatase 83 U/L (38-126); Anion Gap 8.1 mEq/L (5-15); Aspartate Amino Transferase 41 U/L (14-36); Bilirubin,Total 0.5 mg/dl (0.2-1.3); Blood Urea Nitrogen 9 mg/dl (7-17); Calcium 9.6 mg/dl (8.4-10.2); Carbon Dioxide 35 mmol/L (22.0-30.0); Chloride 97 mmol/L (98-107); Estimated Glomerular Filt Rate 111 ml/min (>60); GFR (African American) 135 ML/MIN (>60); Globulin 3.4 g/dL (1.3-3.2); Glucose 151 mg/dl (74-100); Potassium 4.1 mmoL/L (3.5-5.1); Sodium 136 mmol/L (136-145); Total Protein,Serum 7.5 g/dl (6.3-8.2)
[2020-10-14 18:30] LABS: C-Reactive Protein 9.6 mg/L (0-4)
[2020-10-14 19:24] LABS: Erythrocyte Sedimentation Rate 9 mm/hr (0-20)
== END ==
PROVIDERS: PCP Internal Medicine Adolescent Medicine; Visit Provider Podiatrist
DX: M79.671 Pain in right foot (principal)
CPT/HCPCS: 36415; 73630; 80053; 85025; 85651; 86140

== ENCOUNTER → 2020-12-09 09:16 | Outpatient (CLI) | payer OTHER, SELFPAY ==
--- NOTE | 2020-12-09 09:27 | MR_ITS ---
PROCEDURE: MR HEAD/BRAIN WO CON CLINICAL INDICATION: SEIZURE Hx seizures. There becoming more frequent and intense [id number]. Before seizures she has headaches and after, she has blurred vision. No prior. COMPARISON: CT SINUS CT SINUS (MAX-FACIAL W/O CONT) from 05/24/2017 TECHNIQUE: Routine multiplanar multi echo sequences are performed without gadolinium enhancement. FINDINGS: No midline shift, mass effect, intracranial hemorrhage, or hydrocephalus is evident. No evidence of acute infarction. The cerebellopontine angles, cerebellum, and brainstem have an unremarkable appearance. In the left parietal lobe, there is a peripheral rounded area of decreased T1 and increased T2 signal measuring 12 mm there is some subcortical T2 white matter hyperintensity in this region somewhat gyriform in nature. No restricted diffusion. The remaining white matter has an unremarkable appearance. No mastoid effusion. Artifact is present in the maxillary sinus region. The pituitary, optic chiasm, corpus callosum, and craniocervical junction have an unremarkable appearance. IMPRESSION: 1. No acute intracranial findings. 2. 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
== END ==
PROVIDERS: PCP Internal Medicine Adolescent Medicine; Visit Provider Internal Medicine Adolescent Medicine
DX: R56.9 Unspecified convulsions (principal)
CPT/HCPCS: 70551

== ENCOUNTER → 2021-01-30 10:42 | Outpatient (CLI) | payer OTHER, SELFPAY ==
[2021-01-30 11:17] LABS: Adenovirus,PCR Not Detected (NotDetected); Bordetella Pertussis Not Detected (NotDetected); Chlamydophila Pneumoniae, PCR Not Detected (NotDetected); Coronavirus 19, PCR Not Detected (NotDetected); Coronavirus 229E Not Detected (NotDetected); Coronavirus NL63 Not Detected (NotDetected); Coronavirus OC43 Not Detected (NotDetected); Coronovirus HKU1,PCR Not Detected (NotDetected); Human Metapneumovirus Not Detected (NotDetected); Influenza A, PCR Not Detected (NotDetected); Influenza AH1, 2009 Not Detected (NotDetected); Influenza AH1, PCR Not Detected (NotDetected); Influenza AH3,PCR Not Detected (NotDetected); Influenza B, PCR Not Detected (NotDetected); Mycoplasma Pneumoniae, PCR Not Detected (NotDetected); Parainfluenza 1, PCR Not Detected (NotDetected); Parainfluenza 2, PCR Not Detected (NotDetected); Parainfluenza 3, PCR Not Detected (NotDetected); Parainfluenza 4, PCR Not Detected (NotDetected); Respiratory Syncytial Virus Not Detected (NotDetected); Rhinovirus/Enterovirus Not Detected (NotDetected)
== END ==
PROVIDERS: PCP Internal Medicine Adolescent Medicine; Visit Provider Internal Medicine Adolescent Medicine
DX: Z20.822 Contact with and (suspected) exposure to COVID-19 (principal); R19.7 Diarrhea, unspecified
CPT/HCPCS: 87581; 87633; 87798

== ENCOUNTER 2021-07-09 16:01 | Emergency (ER) | payer OTHER, SELFPAY ==
[2021-07-09 16:05] VITALS: BP 146/110; PULSE 78; RESP 20; TEMP 36.7; O2SAT 95; BMI 25.7
[2021-07-09 16:30] VITALS: BP 147/88; PULSE 74; RESP 18; O2SAT 93
--- NOTE | 2021-07-09 16:30 | HMH.EDGENADL ---
ED Disposition Clinical Impression: Nausea and vomiting Qualifiers: Vomiting type: unspecified Vomiting Intractability: non-intractable Qualified Code(s): R11.2 - Nausea with vomiting, unspecified Disposition: Home, Self-Care Condition on Discharge: Good Prescriptions: ondansetron HCL [Zofran 4mg Tab*] 4 mg PO TIDP PRN #12 tab PRN Reason: Nausea Transmission Status: Pending to [facility] Referrals: Provider,Referral, [Referring] - - Critical Care Critical Care Time: No Attestation: On 07/09/21, the high probability of a clinically significant, sudden or life threatening deterioration of the following system(s) required my full and direct attention, intervention and personal management. The time I documented below is in addition to time spent performing reported procedures but includes the following listed in this critical care notation. Medical Decision Making - Medical Records Medical records reviewed: Yes: I reviewed the patient's medical records. - Rian Inquiry Pt receiving controlled substance: No Vital Signs: 07/09/21 16:05 07/09/21 16:30 07/09/21 17:30 Temperature 98.0 F Temperature Source Oral Pulse Rate 74 72 Pulse Rate [Left] 78 Respiratory Rate 20 18 18 Blood Pressure 147/88 H 140/90 Blood Pressure [Right Arm] 146/110 H Blood Pressure Mean 98 Blood Pressure Mean [Right Arm] 122 Blood Pressure Source [Right Arm] Automatic Cuff 02 Sat by Pulse Oximetry 95 93 L 94 L Oxygen Delivery Method Room Air - Lab Data Lab Results 07/09/21 16:25: WBC 9.0, RBC 4.83, Hgb 15.9, Hct 47.2 H, MCV 97.8, MCH 32.9 H, MCHC 33.6, RDW 13.7, Plt Count 258, MPV 8.4, Neut % (Auto) 55.8, Lymph % (Auto) 38.8, Edwards % (Auto) 4.2, Eos % (Auto) 0.4, Baso % (Auto) 0.9, Neut # (Auto) 5.0, Lymph # (Auto) 3.5, Edwards # (Auto) 0.4, Eos # (Auto) 0.0, Baso # (Auto) 0.1 07/09/21 16:25: Sodium 138, Potassium 4.7, Chloride 99, Carbon Dioxide 33 H, Anion Gap 10.7, BUN 16, Creatinine 0.50 L, Estimated Creat Clear 146, Estimated GFR 137, Est GFR ( Amer) 165, Glucose 96, Calcium 9.2, Total Bilirubin 0.6, AST 73 H, ALT 9 L, Alkaline Phosphatase 85, Total Protein 8.3 H, Albumin 4.4, Globulin 3.9 H, Albumin/Globulin Ratio 1.1 07/09/21 16:25: Lactate 0.9 07/09/21 16:25: SARS-CoV-2 (PCR) Not detected, Influenza A Untype (PCR) Not detected, Influenza Type B (PCR) Not detected Result diagrams: 07/09/21 16:25 07/09/21 16:25 Orders (Tests/Meds): ED MEDICATIONS Discontinued Medications Generic Name Dose Route Start Last Admin Trade Name Liv PRN Reason Stop Dose Admin Ketorolac Tromethamine 15 mg 07/09/21 16:33 07/09/21 17:51 Ketorolac 30mg/Ml Vial IV 07/09/21 16:34 15 mg ONCE ONE Administration Prochlorperazine Edisylate 10 mg 07/09/21 16:33 07/09/21 17:52 Prochlorperazine 10mg/2ml Vial IV 07/09/21 16:34 10 mg ONCE ONE Administration ORDERS Category Date Time Status D-Dimer Stat Lab 07/09/21 16:25 Received Blood Culture Stat Micro 07/09/21 16:25 Received Medical Decision Narrative: Patient is a 41-year-old female presents ED today for generalized feelings of fatigue, body aches, nausea vomiting and headache. Patient is overall well-appearing on initial evaluation although appears to feel very unwell, vital signs are stable. Will order CBC CMP troponin chest x-ray D-dimer for further evaluation of patient's electrolytes and cardiac enzyme levels, will also order chest x-ray, 10 mg of IV Compazine, and 15 mg of IV Toradol. Patient has had significant symptomatic improvement since administration of these medications, is requesting to go home at this time. On further history of the patient she does take an oral contraceptive pill, we will add on a D-dimer to her blood work from earlier, I have discussed the risk of pulmonary embolism with the patient, although I do believe that the risk is low, and per the white YEARS criteria would need a level of over tho
--- NOTE | 2021-07-09 16:31 | XR_ITS ---
PROCEDURE INFORMATION: Exam: XR Chest Exam date and time: 07/09/2021 4:31 PM Age: 41 years old Clinical indication: Shortness of breath TECHNIQUE: Imaging protocol: XR of the chest. Views: 1 view. COMPARISON: CR XR CHEST 2V 08/26/2020 3:52 PM FINDINGS: Lungs: Ill-defined opacities in the bilateral lower lungs and lung apices compatible with summation artifact. No focal consolidation. No appreciable pulmonary edema. Right basal ground-glass airspace opacity, compatible with subsegmental atelectasis. Pleural spaces: No pleural effusion. No pneumothorax. Heart/Mediastinum: Cardiomediastinal silouhette is within normal limits. Bones/joints: No acute osseous abnormality. Soft tissues: Unremarkable. IMPRESSION: No evidence of acute cardiopulmonary disease.
[2021-07-09 16:48] LABS: Basophils # 0.1 K/mm3 (0-0.2); Basophils % 0.9 % (0.1-2.0); Eosinophils % 0.4 % (0.1-12.0); Hematocrit 47.2 % (37.0-47.0); Hemoglobin 15.9 g/dL (12.2-16.2); Lymphocytes # 3.5 K/mm3 (0.7-4.5); Lymphocytes % 38.8 % (10-50); Mean Corpuscular HGB Conc 33.6 g/dL (31.8-35.4); Mean Corpuscular Hemoglobin 32.9 pg (27.0-31.2); Mean Corpuscular Volume 97.8 fl (81-99); Mean Platelet Volume 8.4 fl (7.4-10.4); Monocytes # 0.4 K/mm3 (0.1-1.0); Monocytes % 4.2 % (1.7-9.3); Neutrophils % 55.8 % (37.0-80.0); Platelet Count 258 K/mm3 (142-424); Red Blood Count 4.83 M/mm3 (4.20-5.40); Red Cell Distribution Width 13.7 % (11.5-17.5)
[2021-07-09 16:50] LABS: Chloride 99 mmol/L (98-107); Potassium 4.7 mmoL/L (3.5-5.1); Sodium 138 mmol/L (136-145)
[2021-07-09 16:53] LABS: Alanine Aminotransferase 9 U/L (12-78); Albumin Level 4.4 g/dl (3.5-5.0); Albumin/Globulin Ratio 1.1 (1.1-1.8); Alkaline Phosphatase 85 U/L (38-126); Anion Gap 10.7 mEq/L (5-15); Aspartate Amino Transferase 73 U/L (14-36); Bilirubin,Total 0.6 mg/dl (0.2-1.3); Blood Urea Nitrogen 16 mg/dl (7-17); Carbon Dioxide 33 mmol/L (22.0-30.0); Creatinine Clearance Estimated 146 mL/min (50-200); Estimated Glomerular Filt Rate 137 ml/min (>60); GFR (African American) 165 ML/MIN (>60); Globulin 3.9 g/dL (1.3-3.2); Total Protein,Serum 8.3 g/dl (6.3-8.2)
[2021-07-09 16:54] LABS: Calcium 9.2 mg/dl (8.4-10.2); Glucose 96 mg/dl (74-100); Lactic Acid 0.9 mmol/L (0.7-2.1)
[2021-07-09 17:18] LABS: Coronavirus 19, PCR Not Detected (NotDetected); Influenza A, PCR Not Detected (NotDetected); Influenza B, PCR Not Detected (NotDetected)
[2021-07-09 17:30] VITALS: BP 140/90; PULSE 72; RESP 18; O2SAT 94
[2021-07-09 18:22] VITALS: BP 140/90; PULSE 72; RESP 18; TEMP 36.7; O2SAT 94
== END 2021-07-09 18:28 | disposition home or self-care (01) ==
PROVIDERS: Emergency Provider Student in an Organized Health Care Education/Training Program; PCP Internal Medicine Adolescent Medicine
DX: R06.02 Shortness of breath (principal); Z20.822 Contact with and (suspected) exposure to COVID-19; F17.210 Nicotine dependence, cigarettes, uncomplicated
CPT/HCPCS: 71045; 80053; 83605; 85025; 85378; 87040; 96375; 99284; C9803; U0003; U0005

== ENCOUNTER → 2021-10-13 12:13 | Outpatient (CLI) | payer OTHER, SELFPAY | PROVIDERS: Visit Provider Nurse Practitioner | DX: Z20.822 Contact with and (suspected) exposure to COVID-19 (principal) | CPT/HCPCS: C9803; U0003; U0005 ==

== ENCOUNTER 2022-01-29 17:51 | Emergency (ER) | payer OTHER, SELFPAY ==
[2022-01-29 19:44] VITALS: BP 00/00; PULSE 0; RESP 0; TEMP -17.7; TEMP 0
== END 2022-01-29 19:46 | disposition left against medical advice (07) ==
PROVIDERS: Emergency Provider Emergency Medicine; PCP Internal Medicine Adolescent Medicine
DX: Z53.21 Procedure and treatment not carried out due to patient leaving prior to being seen by health care provider
CPT/HCPCS: 99211

== ENCOUNTER 2022-01-29 20:04 | Emergency (ER) | payer OTHER, SELFPAY ==
[2022-01-29 20:05] VITALS: BP 118/68; PULSE 69; RESP 17; TEMP 37; O2SAT 98; BMI 23.2
--- NOTE | 2022-01-29 20:46 | HMH.EDDENT ---
ED Disposition Clinical Impression: Infected dental caries Disposition: Home, Self-Care Condition on Discharge: Good Instructions: DI for Dental Pain Additional Instructions: use meds and see pcp for follow up Prescriptions: clindamycin HCL [Clindamycin HCl] 300 mg PO TID #30 cap Transmission Status: Pending to [facility] Ketorolac Tromethamine [Toradol 10mg tablet] 10 mg PO Q6HP PRN #10 tab MDD 40mg/day PRN Reason: Moderate To Severe Pain Transmission Status: Pending to [facility] Referrals: Gray Leos MD [Primary Care Provider] - - Critical Care Critical Care Time: No Attestation: On 01/29/22, the high probability of a clinically significant, sudden or life threatening deterioration of the following system(s) required my full and direct attention, intervention and personal management. The time I documented below is in addition to time spent performing reported procedures but includes the following listed in this critical care notation. Medical Decision Making - Medical Records Medical records reviewed: Yes: I reviewed the patient's medical records. - Rian Inquiry Pt receiving controlled substance: No Vital Signs: 01/29/22 20:05 Temperature 98.6 F Temperature Source Oral Pulse Rate [Right] 69 Respiratory Rate 17 Blood Pressure [Right Arm] 118/68 Blood Pressure Mean [Right Arm] 84 Blood Pressure Source [Right Arm] Automatic Cuff 02 Sat by Pulse Oximetry 98 Oxygen Delivery Method Room Air Medical Decision Narrative: pt with acute dental infection and will be placed on meds Dental HPI - General Chief complaint: Dental/Oral Stated complaint: dental pain,fever Time Seen by Provider: 01/29/22 20:46 Mode of Arrival: Family Vehicle Source of Information: Patient, Medical Record Limitations: No Limitations Description of Symptoms (Recalled from ER Triage Doc. by RN): Pt c/o R side lower jaw swelling and tooth pain. She reports she had a fever this morning of 100.6. She has been taking ibuprofen, last dose at 1999 today. - History of Present Illness HPI Narrative: swelling and tenderness to rt lower jaw with hx of dental infection Complaint: tooth pain Onset (ago): day(s) Severity: moderate Relieving factors: NSAIDs Context: history of dental caries, poor dental care Associated symptoms: gum swelling Treatment prior to arrival: topical analgesic - Related Data Home Medications Medication Instructions Recorded Confirmed alprazolam 1 mg tablet 1 mg PO BID tab 02/09/21 02/09/21 gabapentin 600 mg tablet 600 mg PO TID 30 Days #90 tab 02/09/21 02/09/21 levetiracetam 750 mg tablet 750 mg PO DAILY tab 02/09/21 02/09/21 oxybutynin chloride 5 mg mg PO 02/09/21 02/09/21 tablet,extended release 24 hr paroxetine HCl 10 mg tablet 10 mg PO DAILY 30 Days #30 tab 02/09/21 02/09/21 primidone 50 mg tablet 50 mg PO HS 02/09/21 02/09/21 propranolol 40 mg tablet 40 mg PO BID 30 Days #60 tab 02/09/21 02/09/21 Previous Rx's Medication Instructions Recorded albuterol sulfate 90 mcg/actuation 2 puff INHALATION TID PRN #18 g 05/17/18 aerosol inhaler fluticasone furoate 100 1 inh INHALATION DAILY #28 each 06/09/18 mcg-vilanterol 25 mcg/dose inhalation powder estradiol 2 mg tablet 2 mg PO DAILY #30 tab 07/25/18 Benzonatate [Tessalon Perle 100mg 100 mg PO BID PRN 7 Days #14 cap 09/06/20 Cap*] ondansetron HCL [Zofran 4mg Tab*] 4 mg PO TIDP PRN #12 tab 07/09/21 Ketorolac Tromethamine [Toradol 10 mg PO Q6HP PRN #10 tab MDD 01/29/22 10mg tablet] 40mg/day clindamycin HCL [Clindamycin HCl] 300 mg PO TID #30 cap 01/29/22 Allergies Allergy/AdvReac Type Severity Reaction Status Date / Time No Known Allergies Allergy Verified 02/09/21 09:21 [facility] History - Hepatitis A Screen Attestation statement:: This patient has been screened for Hepatitis A risk factors. I have reviewed the patient's past medical history: Yes Medical History: Reports:: Anxie
[2022-01-29 21:07] VITALS: BP 109/70; PULSE 70; RESP 16; TEMP 37; O2SAT 96
== END 2022-01-29 21:18 | disposition home or self-care (01) ==
PROVIDERS: Emergency Provider Emergency Medicine; PCP Internal Medicine Adolescent Medicine
DX: K02.9 Dental caries, unspecified (principal); I10 Essential (primary) hypertension; F41.8 Other specified anxiety disorders; F17.210 Nicotine dependence, cigarettes, uncomplicated; Z79.899 Other long term (current) drug therapy
CPT/HCPCS: 96372; 99283; J0696

== ENCOUNTER → 2022-06-11 16:51 | Outpatient (CLI) | payer SELFPAY ==
[2022-06-20 21:47] LABS: Chlordiazepoxide <0.1
[2022-06-21 15:09] LABS: Acetone <.010 g/dL (0.000-0.010); Butalbital <1 ug/mL (1-10); Diazepam <0.1 ug/mL (0.1-0.9); Ethanol <.010 g/dL (0.000-0.010); Isopropanol <.010 g/dL (0.000-0.010); Pentobarbital <1 ug/mL (1-5)
== END ==
PROVIDERS: PCP Internal Medicine Adolescent Medicine
DX: Z79.899 Other long term (current) drug therapy (principal)
CPT/HCPCS: 36415; 80306

== ENCOUNTER → 2022-12-30 15:22 | Outpatient (CLI) | payer OTHER, SELFPAY ==
--- NOTE | 2022-12-30 15:36 | MR_ITS ---
PROCEDURE INFORMATION: Exam: MR Head Without and With Contrast Exam date and time: 12/30/2022 3:41 PM Age: 42 years old Clinical indication: Other: Seizures; Additional info: Encephalomalacia, seizures. Blurred vision, 10ml prohance given TECHNIQUE: Imaging protocol: Magnetic resonance imaging of the head without and with contrast. 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 No intracranial mass, hemorrhage or evidence of acute infarcts. Cerebral ventricles: Normal. No ventriculomegaly. Bones/joints: Unremarkable. Paranasal sinuses: Normal as visualized. No acute sinusitis. Mastoid air cells: Normal as visualized. No mastoid effusion. Orbital cavities: Unremarkable. Soft tissues: Unremarkable. IMPRESSION: No acute intracranial abnormality
== END ==
PROVIDERS: PCP Family Medicine; Visit Provider Specialist
DX: G93.40 Encephalopathy, unspecified (principal); R56.9 Unspecified convulsions; R90.89 Other abnormal findings on diagnostic imaging of central nervous system
CPT/HCPCS: 70553; A9576